=== PATIENT | female | born 1950 | race Caucasian/White ===

== ENCOUNTER 2017-05-01 16:15 | Inpatient (IN) | payer OTHER, MEDICARE ==
[~2017-05-01] VITALS: Ht 175.3 cm; Wt 92.4 kg
[~2017-05-01 16:15] MED LIST: CETI10 PO; LEVO137T2 PO; MULT-65 PO; SERT-132 PO; SIMV40TA PO; ZOFR4TAB PO
[2017-05-01 16:18] VITALS: BP 161/85; PULSE 60; RESP 16; TEMP 97.6; O2SAT 98
[2017-05-01 16:30] VITALS: BP 147/70; PULSE 63; RESP 16; O2SAT 99
--- NOTE | 2017-05-01 16:35 | PD ---
HPI Chief Complaint: Respiratory Distress Time Seen by Provider: 16:28 Travel History International Travel<30 days: No Contact w/Intl Traveler<30days: No Traveled to known affect area: No History of Present Illness HPI 67-year-old female presents to the emergency department with her with 3 day history of increasing shortness of breath with exertion. Patient denies fever, chills, productive cough, wheezing, or chest pain. Patient has significant history of recent glioblastoma surgery at [facility]. This occurred on April 10, 2017. Patient is currently awaiting chemo and radiation treatments. These have not started yet. Patient has local oncologist, and was sent here to rule out a PE. Patient also has a history of hypothyroidism not checked since January. Patient denies significant cardiac history. Patient denies edema in the lower extremities. Patient currently has no pain, but does get winded with any type of exertion. She states this is worsened in the last 3 days. Patient states history of anemia in the distant past. She has no abdominal complaints. She is allergic to amoxicillin. [facility], [facility] Past Medical History : 4 Para: 4 Social History Alcohol Use: No Tobacco Use: No Allergies-Medications (Allergen,Severity, Reaction): Coded Allergies: Penicillins (Verified Allergy, Severe, hives, 05/01/17) amoxicillin (Verified Allergy, Intermediate, hives, 05/01/17) Reported Meds & Prescriptions Reported Meds & Active Scripts Active Sertraline (Sertraline HCl) 50 Mg Tab 50 Mg PO DAILY Levothyroxine (Levothyroxine Sodium) 137 Mcg Tab 137 Mcg PO DAILY Simvastatin 40 Mg Tab 40 Mg PO HS Reported Dexamethasone 2 Mg Tab 2 Mg PO DAILY Keppra (Levetiracetam) 1,000 Mg Tab 1,000 Mg PO BID Multi-Vitamin Daily (Multiple Vitamin) 1 Tab Tab 1 Tab PO DAILY Review of Systems Except as stated in HPI: all other systems reviewed are Neg General / Constitutional: No: Fever Eyes: No: Visual changes HENT: No: Headaches Cardiovascular: Positive: Dyspnea on exertion, No: Chest Pain or Discomfort, Palpitations, Irregular Rhythm, Tachycardia, Diaphoresis Respiratory: Positive: Shortness of Breath, No: Cough, Wheezing, Sneezing Gastrointestinal: No: Nausea, Vomiting, Diarrhea, Abdominal Pain Genitourinary: No: Dysuria Musculoskeletal: No: Pain Skin: No Rash Neurologic: No: Weakness Psychiatric: No: Depression Endocrine: No: Polydipsia Hematologic/Lymphatic: No: Easy Bruising Physical Exam Narrative GENERAL: Patient appears comfortable and in no acute distress SKIN: Warm and dry. Normal color. Normal turgor HEAD: Atraumatic. Normocephalic. EYES: Pupils equal and round. No scleral icterus. No injection or drainage. No decreased pallor noted. ENT: No nasal bleeding or discharge. Mucous membranes pink and moist. Pharynx is clear. Airways patent NECK: Trachea midline. Supple and nontender CARDIOVASCULAR: Regular rate and rhythm. No murmurs or gallops appreciated. RESPIRATORY: No accessory muscle use. Clear to auscultation. Breath sounds equal bilaterally. GASTROINTESTINAL: Abdomen soft, non-tender, nondistended. Hepatic and splenic margins not palpable. MUSCULOSKELETAL: Extremities without clubbing, cyanosis, or edema. No obvious deformities. NEUROLOGICAL: Awake and alert. No obvious cranial nerve deficits. Motor grossly within normal limits. Five out of 5 muscle strength in the arms and legs. Normal speech. PSYCHIATRIC: Appropriate mood and affect; insight and judgment normal. Data Data Last Documented VS Vital Signs Date Time Temp Pulse Resp B/P (MAP) Pulse Ox O2 Delivery O2 Flow Rate FiO2 05/01/17 19:06 65 15 99 Room Air 05/01/17 19:05 162/78 (106) 05/01/17 16:30 2.00 05/01/17 16:18 97.6 Orders Orders Complete Blood Count With Diff (05/01/17 16:36) Comprehensive Metabolic Panel (05/01/17 16:36) Act Partial Throm Time (Ptt) (05/01/17 16:36) Prothrombin Time / Inr (Pt) (05/01/17 16:36) Magnesium (Mg) (05/01/17 16:36) Ckmb (Isoenzyme) Profile (05/01/17 16:36) Troponin I (05/01/17 16:36) Urinalysis - C+S If Indicated (05/01/17 16:36) Iv Access Insert/Monitor (05/01/17 16:36) Electrocardiogram (05/01/17 16:36) Ecg Monitoring (05/01/17 16:36) Oximetry (05/01/17 16:36) Oxygen Administration (05/01/17 16:36) Chest, Single Ap (05/01/17 16:36) Ct Pulmonary Angiogram (05/01/17 16:36) Sodium Chloride 0.9% Flush (Ns Flush) (05/01/17 16:45) Sodium Chlor 0.9% 1000 Ml Inj (Ns 1000 M (05/01/17 16:45) Thyroid Stimulating Hormone (05/01/17 16:50) Iohexol 350 Inj (Omnipaque 350 Inj) (05/01/17 18:34) Us Leg Venous Doppler Bilat (05/01/17 19:53) Heparin Inj (Heparin Inj) (05/01/17 20:00) Heparin-D5w 25,000 U/250 Ml (Heparin-D5w (05/01/17 20:00) Act Partial Throm Time (Ptt) (05/01/17 19:56) Prothrombin Time / Inr (Pt) (05/01/17 19:56) Cbc No Diff, Includes Plts (05/01/17 19:56) Cbc No Diff, Includes Plts (05/04/17 06:00) Act Partial Throm Time (Ptt) (05/02/17 02:56) Occult Blood (Hemoccult) Stool (05/01/17 19:56) Admit Order (Ed Use Only) (05/01/17 20:22) Labs Laboratory Tests Test 05/01/17 16:50 05/01/17 18:20 White Blood Count 5.7 TH/MM3 Red Blood Count 4.22 MIL/MM3 Hemoglobin 13.0 GM/DL Hematocrit 37.8 % Mean Corpuscular Volume 89.6 FL Mean Corpuscular Hemoglobin 30.8 PG Mean Corpuscular Hemoglobin Concent 34.4 % Red Cell Distribution Width 13.7 % Platelet Count 179 TH/MM3 Mean Platelet Volume 6.8 FL Neutrophils (%) (Auto) 74.8 % Lymphocytes (%) (Auto) 16.5 % Monocytes (%) (Auto) 7.6 % Eosinophils (%) (Auto) 0.6 % Basophils (%) (Auto) 0.5 % Neutrophils # (Auto) 4.2 TH/MM3 Lymphocytes # (Auto) 0.9 TH/MM3 Monocytes # (Auto) 0.4 TH/MM3 Eosinophils # (Auto) 0.0 TH/MM3 Basophils # (Auto) 0.0 TH/MM3 CBC Comment DIFF FINAL Differential Comment Prothrombin Time 10.0 SEC Prothromb Time International Ratio 1.0 RATIO Activated Partial Thromboplast Time 21.7 SEC Blood Urea Nitrogen 12 MG/DL Creatinine 0.60 MG/DL Random Glucose 107 MG/DL Total Protein 6.9 GM/DL Albumin 3.3 GM/DL Calcium Level 8.7 MG/DL Magnesium Level 1.9 MG/DL Alkaline Phosphatase 72 U/L Aspartate Amino Transf (AST/SGOT) 11 U/L Alanine Aminotransferase (ALT/SGPT) 27 U/L Total Bilirubin 0.4 MG/DL Sodium Level 139 MEQ/L Potassium Level 4.1 MEQ/L Chloride Level 105 MEQ/L Carbon Dioxide Level 26.8 MEQ/L Anion Gap 7 MEQ/L Estimat Glomerular Filtration Rate 100 ML/MIN Total Creatine Kinase 28 U/L Troponin I LESS THAN 0.02 NG/ML Thyroid Stimulating Hormone 3rd Gen 2.100 uIU/ML Urine Color LIGHT-YELLOW Urine Turbidity CLEAR Urine pH 6.0 Urine Specific [place] 1.011 Urine Protein NEG mg/dL Urine Glucose (UA) NEG mg/dL Urine Ketones NEG mg/dL Urine Occult Blood NEG Urine Nitrite NEG Urine Bilirubin NEG Urine Urobilinogen LESS THAN 2.0 MG/DL Urine Leukocyte Esterase NEG Urine WBC LESS THAN 1 /hpf Urine Squamous Epithelial Cells <1 /hpf Microscopic Urinalysis Comment CULT NOT INDICATED MDM Medical Decision Making Medical Screen Exam Complete: Yes Emergency Medical Condition: Yes Medical Record Reviewed: Yes Differential Diagnosis Exertional dyspnea. Anemia. PE. Hypothyroidism. Cardiac syndrome. CHF. Metastatic disease. Narrative Course Patient is medically stable at time of exam. Labs ordered including CBC, CMP, coagulation studies, TSH, and urinalysis. EKG is ordered. Chest x-ray is ordered. CTA of the chest is ordered. IV access is obtained and the patient is given 1000 mL normal saline bolus. Chest x-ray shows no acute process per radiologist. EKG shows sinus bradycardia without significant findings. CBC is unremarkable. Coagulation studies shows PT of 10, INR is 1.0. Chemistries are unremarkable. Random glucose is 107, AST is 11, albumin is 3.3. TSH is 2.1 CTA shows bilateral pulmonary emboli, and a single 6 mm pulmonary nodule in the right upper lung. Six-month follow-up is recommended for the nodule. Call was placed to Dr. Lindsay, the oncologist director [employer] regarding this patient. Dr. Lindsay recommends admitting the patient for heparinization due to her recent brain surgery on April 10, due to the risk of bleed, so she can be monitored closely. DVT studies of both lower extremities are ordered. Heparin order is placed. Calls placed to the hospitalist for admission. Diagnosis Primary Impression: Pulmonary embolism, bilateral Additional Impression: Glioblastoma Admitting Information Admitting Physician Requests: Admit Condition: Stable Dwight Landa May 01, 2017 16:35
[2017-05-01] MEDS ORDERED: SODIUM CHLORIDE 0.9% FLUSH 10 ML FLUSH IVF PRN (16:45)
[2017-05-01] MEDS ORDERED: SODIUM CHLOR 0.9% 1000 ML INJ 1,000 ML IV ONE (16:45)
[2017-05-01] MEDS ORDERED: DEXA2TAB PO (17:06)
[2017-05-01] MEDS ORDERED: KEPP10002 PO (17:06)
--- NOTE | 2017-05-01 17:07 | RADRPT ---
EXAM DATE/TIME: 05/01/2017 16:48 [facility] COMPARISON: No previous studies available for comparison. INDICATIONS : Shortnest of breath. MEDICAL HISTORY : None. SURGICAL HISTORY : None. ENCOUNTER: Initial ACUITY: 4 - 6 days PAIN SCORE: 0/10 LOCATION: Bilateral chest FINDINGS: A single view of the chest demonstrates the lungs to be symmetrically aerated without evidence of mas s, infiltrate or effusion. The cardiomediastinal contours are unremarkable. Osseous structures are intact. CONCLUSION: No acute disease. Art Buchanan MD FACR on May 01, 2017 at 17:04 Board Certified Radiologist. This report was verified electronically.
[2017-05-01 18:09] LABS: AUTOMATED NEUTROPHIL # 4.2 TH/MM3 (1.8-7.7); BASOPHIL % 0.5 % (0.0-2.0); EOSINOPHIL % 0.6 % (0.0-4.0); HEMATOCRIT 37.8 % (35.0-46.0); LYMPH % 16.5 % (9.0-44.0); LYMPHOCYTE # 0.9 TH/MM3 (1.0-4.8); MEAN CELL VOLUME 89.6 FL (80.0-100.0); MEAN CORPUSCULAR HEMOGLOBIN 30.8 PG (27.0-34.0); MEAN CORPUSCULAR HGB CONC 34.4 % (32.0-36.0); MEAN PLATELET VOLUME 6.8 FL (7.0-11.0); MONO % 7.6 % (0.0-8.0); MONOCYTE # 0.4 TH/MM3 (0-0.9); NEUT % 74.8 % (16.0-70.0); PLATELET COUNT 179 TH/MM3 (150-450); RED BLOOD COUNT 4.22 MIL/MM3 (4.00-5.30); RED CELL DISTRIBUTION WIDTH 13.7 % (11.6-17.2); WHITE BLOOD COUNT 5.7 TH/MM3 (4.0-11.0)
[2017-05-01 18:13] LABS: ALBUMIN 3.3 GM/DL (3.4-5.0); ALT (GPT) 27 U/L (10-53); AST (GOT) 11 U/L (15-37); BICARBONATE 26.8 MEQ/L (21.0-32.0); BLOOD UREA NITROGEN 12 MG/DL (7-18); CALCIUM 8.7 MG/DL (8.5-10.1); CHLORIDE 105 MEQ/L (98-107); GLOMERULAR FILTRATION RATE 100 ML/MIN (>89); GLUCOSE,RANDOM 107 MG/DL (74-106); MAGNESIUM 1.9 MG/DL (1.5-2.5); SODIUM (NA) 139 MEQ/L (136-145)
[2017-05-01 18:23] LABS: ALKALINE PHOSPHATASE 72 U/L (45-117); TOTAL BILIRUBIN ADULT 0.4 MG/DL (0.2-1.0); TOTAL PROTEIN 6.9 GM/DL (6.4-8.2); TROPONIN I LESS THAN 0.02 NG/ML (0.02-0.05)
[2017-05-01] MEDS ORDERED: IOHEXOL 350 MG/ML 10 ML VIAL (for RAD DIAG) IVCONTRAST ONE (18:34)
[2017-05-01 19:05] VITALS: BP 162/78; PULSE 65; RESP 16; O2SAT 99
--- NOTE | 2017-05-01 19:11 | RADRPT ---
EXAM DATE/TIME: 05/01/2017 18:31 [facility] COMPARISON: No previous studies available for comparison. INDICATIONS : Shortness of breath; 3 weeks post op. IV CONTRAST: 75 cc Omnipaque 350 (iohexol) IV RADIATION DOSE: 19.09 CTDIvol (mGy) MEDICAL HISTORY : Carcinoma, not otherwise specified. SURGICAL HISTORY : brain surgery ENCOUNTER: Initial ACUITY: 1 day PAIN SCALE: 0/10 LOCATION: chest TECHNIQUE: Volumetric scanning of the chest was performed using a pulmonary embolism protocol MIP images were re constructed. Using automated exposure control and adjustment of the mA and/or kV according to patien t size, radiation dose was kept as low as reasonably achievable to obtain optimal diagnostic quality images. DICOM format image data is available electronically for review and comparison. Follow-up recommendations for detected pulmonary nodules are based at a minimum on nodule size and pa tient risk factors according to Fleischner Society Guidelines. FINDINGS: PULMONARY ARTERIES: Multiple filling defects are seen in multiple branches of the pulmonary arteries bilaterally, especia lly involving the lower lung lake. This is characteristic for bilateral pulmonary emboli. LUNGS: There is a single 6 mm pulmonary nodule in the right upper lobe. Otherwise, the lungs are clear and w ell-aerated. No acute pulmonary infiltrates. PLEURAE: There is no pleural thickening or pleural effusion. MEDIASTINUM: There is good visualization of the great vessels of the middle mediastinum. No evidence of mediastin al or hilar adenopathy/mass. MUSCULOSKELETAL: Within normal limits for patient age. MISCELLANEOUS: The visualized upper abdominal organs demonstrate no acute abnormality. CONCLUSION: 1. Bilateral pulmonary emboli. 2. Single 6 mm pulmonary nodule right upper lung. Recommend a [address] thorax. Clifton Balderrama MD on May 01, 2017 at 19:05 Board Certified Radiologist. This report was verified electronically.
[2017-05-01 19:43] LABS: BILIRUBIN, URINE NEG (NEG); BLOOD, URINE NEG (NEG); GLUCOSE,URINE NEG (NEG); KETONE, URINE NEG (NEG); NITRITE,URINE NEG (NEG); SQUAMOUS EPITHELIAL CELL URINE <1 /hpf (0-5); URINE COLOR LIGHT-YELLOW (YELLW/STRAW); URINE LEUKOCYTE ESTERASE NEG (NEG)
[2017-05-01 20:00] VITALS: BP 114/55; PULSE 53; RESP 17; TEMP 97.2; O2SAT 95
[2017-05-01] MEDS ORDERED: HEPARIN SODIUM - IV 10,000 UNITS/10 ML VIAL IV PUSH ONE ×2 (20:00→21:30)
[2017-05-01] MEDS ORDERED: HEPARIN-D5W 25,000 U/250 ML 250 ML IV PRN (20:00)
--- NOTE | 2017-05-01 20:33 | HHI.HP ---
[facility] Service Family Medicine Primary Care Physician Tami Campos MD Admission Diagnosis Bilateral PE/Recent Brain Surgery for Glioblastoma Diagnoses: Chief Complaint: shortness of breath International Travel<30 Days: No Contact w/Intl Traveler<30days: No Known Affected Area: No History of Present Illness 67 y/o female with history of glioblastoma, hypothyroid, HLD presents with shortness of breath. Pt just had brain surgery 3 weeks at [facility] (04/10). Then, she started having some SOB, contacted [facility] and her oncologist who recommended her to be evaluated for possible PE. [facility] Dr. Garcia and [facility]. SOB started about 4 days ago, gotten worse each day. Denies any other symptoms at the time. Has had some headaches in the morning. No chest pain, did have cough after surgery and was taking antibiotics for that and finished course. SOB noticed when she was active , not at rest. No pain in her legs. Was only in hospital overnight. [facility], drove back on 04/17. No long drives >1h or flights since then. Diagnosed with glioblastoma around April 06 after traveling to [place] and being there a week. She had a seizure and was then evaluated. She returned home and had surgery. She is going to have radiation and chemotherapy for 6 weeks, then reevaluation at [facility] then probably another year of chemotherapy. (Justyn Connelly MD) Review of Systems Constitutional: DENIES: Fever, Weight gain, Chills, Dizziness Eyes: DENIES: Eye pain, Vision loss Ears, nose, mouth, throat: DENIES: Nasal discharge, Throat pain Respiratory: COMPLAINS OF: Shortness of breath, DENIES: Cough, Sputum production Cardiovascular: DENIES: Chest pain, Palpitations, Syncope, Lower Extremity Edema Gastrointestinal: COMPLAINS OF: Constipation, DENIES: Diarrhea, Nausea, Vomiting Genitourinary: DENIES: Dysuria, Nocturia Musculoskeletal: DENIES: Stiffness, Back pain, Neck pain Integumentary: DENIES: Rash Neurologic: COMPLAINS OF: Headache, Speech Problems, DENIES: Localized weakness , Seizures Psychiatric: DENIES: Confusion, Mood changes (Justyn Connelly MD) Past Family Social History Past Medical History Glioblastoma Hypothyroidism Hyperlipidemia Past Surgical History Brain surgery - 04/10/17 Tonsillectomy in 9 Appendectomy in 1990 (retrocecal) Basal cell carcinoma lesion (adan) in 2012 Reported Medications Reported Meds & Active Scripts Active Sertraline (Sertraline HCl) 50 Mg Tab 50 Mg PO DAILY Levothyroxine (Levothyroxine Sodium) 137 Mcg Tab 137 Mcg PO DAILY Simvastatin 40 Mg Tab 40 Mg PO HS Reported Dexamethasone 2 Mg Tab 2 Mg PO PRN daily Keppra (Levetiracetam) 1,000 Mg Tab 1,000 Mg PO BID Multi-Vitamin Daily (Multiple Vitamin) 1 Tab Tab 1 Tab PO DAILY (Justyn Connelly MD) Allergies: Coded Allergies: Penicillins (Verified Allergy, Severe, hives, 05/01/17) amoxicillin (Verified Allergy, Intermediate, hives, 05/01/17) Active Ordered Medications Active Medications Heparin Sodium (Porcine) (Heparin Inj) 7,000 units ONCE ONCE IV PUSH; Start 05/01/17 at 20:00; Stop 05/01/17 at 20:01; Status DC Heparin Sodium/ Dextrose 250 ml @ 0 mls/hr TITRATE PRN IV; Start 05/01/17 at 20: 00; Status UNV Iohexol (Omnipaque 350 Inj) 75 ml STK-MED ONCE IVCONTRAST Last administered on at 18:34; Admin Dose 75 ML; Start 05/01/17 at 18:34; Stop 05/01/17 at 18:35; Status DC Sodium Chloride 1,000 ml @ 999 mls/hr BOLUS ONCE IV Last administered on at 17:03; Admin Dose 999 MLS/HR; Start 05/01/17 at 16:45; Stop 05/01/17 at 17:45 ; Status DC Sodium Chloride (NS Flush) 2 ml UNSCH PRN IVF; Start 05/01/17 at 16:45 Family History Father: , stroke/heart attack/dementia Mother: , COPD, breast cancer Sibling(s): 2 sisters, both alive, both have hypothyroidism, one has a faulty heart valve Social History Marital status: Occupation: Teacher - retired in 2017 Smoking: Denies Alcohol: Occasional glass of wine Illicit or illegal prescription medication use: Denies (Justyn Connelly MD) Physical Exam Vital Signs Vital Signs Date Time Temp Pulse Resp B/P (MAP) Pulse Ox O2 Delivery O2 Flow Rate FiO2 05/01/17 19:06 65 15 99 Room Air 05/01/17 19:05 65 16 162/78 (106) 99 Room Air 05/01/17 16:30 63 16 147/70 (95) 99 Nasal Cannula 2.00 05/01/17 16:30 99 Nasal Cannula 2.00 05/01/17 16:30 99 Nasal Cannula 2.00 05/01/17 16:30 97 Room Air 05/01/17 16:18 97.6 60 16 161/85 (110) 98 Physical Exam GENERAL: This is a well-nourished, well-developed patient, in no apparent distress. SKIN: No rashes, ecchymoses or lesions. Cool and dry. HEAD: Normocephalic. Post-op scar on left side of head. No drainage. EYES: Pupils equal round and reactive. Extraocular motions intact. No scleral icterus. No injection or drainage. ENT: Throat without erythema, tonsillar hypertrophy or exudate. Uvula midline. Airway patent. NECK: Trachea midline. No JVD or lymphadenopathy. Supple, nontender. CARDIOVASCULAR: Regular rate and rhythm without murmurs, gallops, or rubs. RESPIRATORY: Clear to auscultation. Breath sounds equal bilaterally. No wheezes , rales, or rhonchi. GASTROINTESTINAL: Abdomen soft, non-tender, nondistended. No hepato-splenomegaly , or palpable masses. No guarding. MUSCULOSKELETAL: Extremities without clubbing, cyanosis, or edema. No joint tenderness, effusion, or edema noted. No calf tenderness. NEUROLOGICAL: Awake and alert. Cranial nerves II through XII intact. Motor and sensory grossly within normal limits. Five out of 5 muscle strength in all muscle groups. Dysarthria at times. Laboratory Laboratory Tests Test 05/01/17 16:50 05/01/17 18:20 White Blood Count 5.7 Red Blood Count 4.22 Hemoglobin 13.0 Hematocrit 37.8 Mean Corpuscular Volume 89.6 Mean Corpuscular Hemoglobin 30.8 Mean Corpuscular Hemoglobin Concent 34.4 Red Cell Distribution Width 13.7 Platelet Count 179 Mean Platelet Volume 6.8 Neutrophils (%) (Auto) 74.8 Lymphocytes (%) (Auto) 16.5 Monocytes (%) (Auto) 7.6 Eosinophils (%) (Auto) 0.6 Basophils (%) (Auto) 0.5 Neutrophils # (Auto) 4.2 Lymphocytes # (Auto) 0.9 Monocytes # (Auto) 0.4 Eosinophils # (Auto) 0.0 Basophils # (Auto) 0.0 CBC Comment DIFF FINAL Differential Comment Prothrombin Time 10.0 Prothromb Time International Ratio 1.0 Activated Partial Thromboplast Time 21.7 Blood Urea Nitrogen 12 Creatinine 0.60 Random Glucose 107 Total Protein 6.9 Albumin 3.3 Calcium Level 8.7 Magnesium Level 1.9 Alkaline Phosphatase 72 Aspartate Amino Transf (AST/SGOT) 11 Alanine Aminotransferase (ALT/SGPT) 27 Total Bilirubin 0.4 Sodium Level 139 Potassium Level 4.1 Chloride Level 105 Carbon Dioxide Level 26.8 Anion Gap 7 Estimat Glomerular Filtration Rate 100 Total Creatine Kinase 28 Troponin I LESS THAN 0.02 Thyroid Stimulating Hormone 3rd Gen 2.100 Urine Color LIGHT-YELLOW Urine Turbidity CLEAR Urine pH 6.0 Urine Specific Traver 1.011 Urine Protein NEG Urine Glucose (UA) NEG Urine Ketones NEG Urine Occult Blood NEG Urine Nitrite NEG Urine Bilirubin NEG Urine Urobilinogen LESS THAN 2.0 Urine Leukocyte Esterase NEG Urine WBC LESS THAN 1 Urine Squamous Epithelial Cells <1 Microscopic Urinalysis Comment CULT NOT INDICATED (Justyn Connelly MD) Result Diagram: 05/01/17164905/01/17 165 Imaging Last Impressions Lower Extremity Ultrasound 05/01/171952 Signed Impressions: Service Date/Time: Monday, May 01, 2017 20:09 - CONCLUSION: 1. Focal occlusive and nonocclusive DVT in the right posterior tibial vein below the knee. No evidence of DVT from the knee up into the pelvis on the right side. 2. No DVT of the left lower extremity. Clifton Balderrama MD Chest X-Ray 05/01/171635 Signed Impressions: Service Date/Time: Monday, May 01, 2017 16:48 - CONCLUSION: No acute disease. Art Buchanan MD FACR CT Angiography 05/01/171635 Signed Impressions: Service Date/Time: Monday, May 01, 2017 18:31 - CONCLUSION: 1. Bilateral pulmonary emboli. 2. Single 6 mm pulmonary nodule right upper lung. Recommend a [address] thorax. Clifton Balderrama MD (Justyn Connelly MD) Caprini VTE Risk Assessment Caprini VTE Risk Assessment: Mod/High Risk (score >= 2) Caprini Risk Assessment Model Point Value = 1 Point Value = 2 Point Value = 3 Point Value = 5 Age 41-60 Minor surgery BMI > 25 kg/m2 Swollen legs Varicose veins or History of unexplained or recurrent spontaneous Oral contraceptives or hormone replacement Sepsis (< 1 month) Serious lung disease, including pneumonia (< 1 month) Abnormal pulmonary function Acute myocardial infarction Congestive heart failure (< 1 month) History of inflammatory bowel disease Medical patient at bed rest Age 61-74 Arthroscopic surgery Major open surgery (> 45 min) Laparoscopic surgery (> 45 min) Malignancy Confined to bed (> 72 hours) Immobilizing plaster cast Central venous access Age >= 75 History of VTE Family history of VTE Factor V Leiden Prothrombin [id number] Lupus anticoagulant Anticardiolipin antibodies Elevated serum homocysteine Heparin-induced thrombocytopenia Other congenital or acquired thrombophilia Stroke (< 1 month) Elective arthroplasty Hip, pelvis, or leg fracture Acute spinal cord injury (< 1 month) Prophylaxis Regimen Total Risk Factor Score Risk Level Prophylaxis Regimen 0-1 Low Early ambulation 2 Moderate Order ONE of the following: *Sequential Compression Device (SCD) *Heparin 5000 units SQ BID 3-4 Higher Order ONE of the following medications: *Heparin 5000 units SQ TID *Enoxaparin/Lovenox 40 mg SQ daily (WT < 150 kg, CrCl > 30 mL/min) *Enoxaparin/Lovenox 30 mg SQ daily (WT < 150 kg, CrCl > 10-29 mL/min) *Enoxaparin/Lovenox 30 mg SQ BID (WT < 150 kg, CrCl > 30 mL/min) AND/OR *Sequential Compression Device (SCD) 5 or more Highest Order ONE of the following medications: *Heparin 5000 units SQ TID (Preferred with Epidurals) *Enoxaparin/Lovenox 40 mg SQ daily (WT < 150 kg, CrCl > 30 mL/min) *Enoxaparin/Lovenox 30 mg SQ daily (WT < 150 kg, CrCl > 10-29 mL/min) *Enoxaparin/Lovenox 30 mg SQ BID (WT < 150 kg, CrCl > 30 mL/min) AND *Sequential Compression Device (SCD) (Justyn Connelly MD) Assessment and Plan Assessment and Plan 67 y/o female with history of glioblastoma and recent brain surgery presents with shortness of breath, found to have bilateral pulmonary embolisms. Admit for workup and treatment. Oncology consulted by ED and recommended starting Heparin drip. Code Status Full Discussed Condition With Syeda (Justyn Connelly MD) Attending Attestation I examined the patient at 1130 today. Her and sister were at the beside. The patient is resting comfortably and denies shortness of breath. For details of HPI, ROS, PMH, SH and FH please see Dr. Connelly's documentation. Lungs are clear. I have discussed the case with Dr. Villar. I agree with the assessment and plan as documented. (Prevatte,Pedrito Shine Jr., MD) Problem List: (1) Pulmonary embolism, bilateral ICD Codes: I26.99 - Other pulmonary embolism without acute cor pulmonale Status: Acute Plan: SOB started several days ago. Risk factors include recent surgery and cancer. CXR: no acute disease CTA: Bilateral pulmonary emboli. Single 6mm pulmonary nodule right upper lung, recommend 6 month f/u Lower extremity US: DVT in right posterior tibia vein. In ED, call was place to Dr. Lindsay, oncologist section crews activities clerk, who recommended admitting pt for Heparin -Continue Heparin -Oncology consulted-appreciate recs -Plan transition to oral agent -Monitor vitals and for signs of bleeding. (2) Glioblastoma ICD Codes: C71.9 - Malignant neoplasm of brain, unspecified Status: Acute Plan: Glioblastoma just recently diagnosed and recent brain surgery as well -Continue Keppra for seizures -Continue Decadron -Oncology consulted -Neuro checks -Speech therapy consulted for evaluation and treatment if prolonged stay (3) Lung nodule ICD Codes: R91.1 - Solitary pulmonary nodule Plan: 6mm pulmonary nodule right upper lung noted on CTA. -Recommend 6 month follow up noncontrast CT -F/u outpatient (4) Hypothyroid ICD Codes: E03.9 - Hypothyroidism, unspecified Plan: TSH 2.1 Continue Synthroid (5) HLD (hyperlipidemia) ICD Codes: E78.5 - Hyperlipidemia, unspecified Plan: Continue Pravastatin (6) FEN Status: Acute Plan: Fluids: Tolerating PO Electrolytes: wnl, continue to monitor Nutrition: Regular diet DVT ppx: Heparin gtt (Justyn Connelly MD) Physician Certification 2 Midnight Certification Type: Admission for Inpatient Services Order for Inpatient Services The services are ordered in accordance with Medicare regulations or non- Medicare payer requirements, as applicable. In the case of services not specified as inpatient-only, they are appropriately provided as inpatient services in accordance with the 2-midnight benchmark. Estimated LOS (days): 3 days is the estimated time the patient will need to remain in the hospital, assuming treatment plan goals are met and no additional complications. Post-Hospital Plan: Home (Justyn Connelly MD) Problem Qualifiers (1) Hypothyroid: Qualified Codes: E03.9 - Hypothyroidism, unspecified (2) HLD (hyperlipidemia): Qualified Codes: E78.00 - Pure hypercholesterolemia, unspecified Justyn Connelly MD May 01, 2017 20:33 Pedrito Guardado Jr., MD May 02, 2017 12:13
--- NOTE | 2017-05-01 21:06 | RADRPT ---
EXAM DATE/TIME: 05/01/2017 20:09 [facility] COMPARISON: No previous studies available for comparison. INDICATIONS : Shortness of Breath. Recent long distance travel. MEDICAL HISTORY : Hypercholesterolemia. Thyroid disease. SURGICAL HISTORY : Tonsillectomy.Appendectomy. Neuro surgery 3 weeks ago. ENCOUNTER: Initial ACUITY: 4 - 6 days PAIN SCORE: 0/10 LOCATION: Bilateral legs. TECHNIQUE: Venous ultrasound of the left and right leg was performed from the inguinal ligament to the proximal calf. Real-time, color Doppler and spectral tracing, compression and augmentation techniques were us ed. FINDINGS: RIGHT LEG: There is normal compressibility of the deep venous system from the inguinal region to the proximal ca lf. No echogenic clot is seen in the lumen of the common femoral, femoral, popliteal vein. However, there is occlusive and some nonocclusive DVT in the right posterior tibial vein in the calf.. LEFT LEG: There is normal compressibility of the deep venous system from the inguinal region to the proximal ca lf. No echogenic clot is seen in the lumen of the common femoral, femoral, popliteal, and posterior tibial veins. There is a normal response of the venous system to proximal and distal augmentation an d respiration. CONCLUSION: 1. Focal occlusive and nonocclusive DVT in the right posterior tibial vein below the knee. No evidenc e of DVT from the knee up into the pelvis on the right side. 2. No DVT of the left lower extremity. Clifton Balderrama MD on May 01, 2017 at 21:01 Board Certified Radiologist. This report was verified electronically.
[2017-05-01] MEDS ORDERED: SODIUM CHLORIDE 0.9% FLUSH 10 ML FLUSH IV FLUSH PRN (21:30)
[2017-05-01] MEDS ORDERED: LACTULOSE SYRUP 20 GM/30 ML CUP PO PRN (21:30)
[2017-05-01] MEDS ORDERED: MAGNESIUM HYDROXIDE SUSP 30 ML CUP PO PRN (21:30)
[2017-05-01] MEDS ORDERED: NALOXONE HCL 0.4 MG/ML AMP IV PUSH PRN (21:30)
[2017-05-01] MEDS ORDERED: ZOLPIDEM TARTRATE 5 MG TAB PO PRN (21:30)
[2017-05-01] MEDS ORDERED: ACETAMINOPHEN 325 MG TAB PO PRN (21:30)
[2017-05-01] MEDS ORDERED: BISACODYL 10 MG SUPP RECTAL PRN (21:30)
[2017-05-01] MEDS ORDERED: SENNOSIDES 8.6 MG TAB PO PRN (21:30)
[2017-05-01] MEDS ORDERED: ONDANSETRON HCL 4 MG/2 ML VIAL IVP PRN (21:30)
[2017-05-01] MEDS: PRAVASTATIN SOD 80 MG TAB PO SCH (22:15)
[2017-05-01] MEDS ORDERED: PILL SPLITTER OTHER PRN (22:15)
[2017-05-02] MEDS ORDERED: HEPARIN SODIUM - IV 10,000 UNITS/10 ML VIAL IV PUSH ONE (01:00)
[2017-05-02 01:07] VITALS: BP 126/62; PULSE 73; RESP 18; TEMP 97.3; O2SAT 96
[2017-05-02] MEDS: HEPARIN 25,000 UNITS-D5W 250 ML - PREMIX IV PRN ×2 (01:35→19:12)
[2017-05-02 04:44] VITALS: BP 133/69; PULSE 63; RESP 18; TEMP 98; O2SAT 95
[2017-05-02 05:12] LABS: AUTOMATED NEUTROPHIL # 3.2 TH/MM3 (1.8-7.7); BASOPHIL % 0.7 % (0.0-2.0); EOSINOPHIL # 0.1 TH/MM3 (0-0.4); EOSINOPHIL % 2.3 % (0.0-4.0); HEMATOCRIT 34.4 % (35.0-46.0); LYMPHOCYTE # 2.3 TH/MM3 (1.0-4.8); MEAN CELL VOLUME 88.5 FL (80.0-100.0); MEAN CORPUSCULAR HEMOGLOBIN 30.8 PG (27.0-34.0); MEAN CORPUSCULAR HGB CONC 34.8 % (32.0-36.0); MEAN PLATELET VOLUME 6.8 FL (7.0-11.0); MONO % 7.5 % (0.0-8.0); MONOCYTE # 0.5 TH/MM3 (0-0.9); NEUT % 51.5 % (16.0-70.0); PLATELET COUNT 164 TH/MM3 (150-450); RED BLOOD COUNT 3.88 MIL/MM3 (4.00-5.30); RED CELL DISTRIBUTION WIDTH 13.8 % (11.6-17.2); WHITE BLOOD COUNT 6.1 TH/MM3 (4.0-11.0)
[2017-05-02 05:22] LABS: INTERNATIONAL NORMALIZED RATIO 1.1 RATIO; PROTHROMBIN TIME - PATIENT 10.7 SEC (9.8-11.6)
[2017-05-02 05:33] LABS: ALBUMIN 2.8 GM/DL (3.4-5.0); ALT (GPT) 23 U/L (10-53); AST (GOT) 10 U/L (15-37); BICARBONATE 29.8 MEQ/L (21.0-32.0); BLOOD UREA NITROGEN 9 MG/DL (7-18); CALCIUM 8.3 MG/DL (8.5-10.1); CHLORIDE 107 MEQ/L (98-107); CREATININE 0.54 MG/DL (0.50-1.00); GLOMERULAR FILTRATION RATE 113 ML/MIN (>89); GLUCOSE,RANDOM 103 MG/DL (74-106); SODIUM (NA) 141 MEQ/L (136-145)
[2017-05-02 05:36] LABS: ALKALINE PHOSPHATASE 62 U/L (45-117); TOTAL BILIRUBIN ADULT 0.4 MG/DL (0.2-1.0); TOTAL PROTEIN 5.9 GM/DL (6.4-8.2)
[2017-05-02] MEDS: LEVOTHYROXINE SODIUM 25 MCG TAB PO SCH (05:39)
[2017-05-02] MEDS: LEVOTHYROXINE SODIUM 112 MCG TAB PO SCH (05:39)
--- NOTE | 2017-05-02 07:46 | HHI.FPPN ---
Subjective Remarks Mrs. Seymour, is a very pleasant 67-year-old, female, with past medical history of glioblastoma, status post tumor resection at [facility] on 2017, who presented to our emergency department with increasing shortness of breath. She was found to have right sided DVT in her lower extremity, as well as bilateral pulmonary emboli. She reported that she would become increasingly fatigued, and short of breath with ambulation. She was put on a heparin drip, and treated for her bilateral pulmonary emboli. Today, she is feeling well. She thought that she may have had a headache early in the morning, however this has subsided. She did not sleep well last night. She denies any bleeding. She denies any visual changes. She denies any increasing shortness of breath, however has not been out of bed. She denies any fevers or chills. (Ramana Villar MD, R3) Objective Vitals Vital Signs Date Time Temp Pulse Resp B/P (MAP) Pulse Ox O2 Delivery O2 Flow Rate FiO2 05/02/17 04:44 98.0 63 18 133/69 (90) 95 05/02/17 01:07 97.3 73 18 126/62 (83) 96 05/01/17 19:06 65 15 99 Room Air 05/01/17 19:05 65 16 162/78 (106) 99 Room Air 05/01/17 16:30 63 16 147/70 (95) 99 Nasal Cannula 2.00 05/01/17 16:30 99 Nasal Cannula 2.00 05/01/17 16:30 99 Nasal Cannula 2.00 05/01/17 16:30 97 Room Air 05/01/17 16:18 97.6 60 16 161/85 (110) 98 I/O 05/01/17 05/01/17 05/01/17 05/02/17 05/02/17 05/02/17 07:00 15:00 23:00 07:00 15:00 23:00 Intake Total 1000 ml Balance 1000 ml Intake IV Total 1000 ml (Ramana Villar MD, R3) Result Diagram: 05/02/176 05/02/176 Imaging Last 72 hours Impressions Lower Extremity Ultrasound 05/01/171952 Signed Impressions: Service Date/Time: Monday, May 01, 2017 20:09 - CONCLUSION: 1. Focal occlusive and nonocclusive DVT in the right posterior tibial vein below the knee. No evidence of DVT from the knee up into the pelvis on the right side. 2. No DVT of the left lower extremity. Clifton Balderrama MD Chest X-Ray 05/01/171635 Signed Impressions: Service Date/Time: Monday, May 01, 2017 16:48 - CONCLUSION: No acute disease. Art Buchanan MD FACR CT Angiography 05/01/171635 Signed Impressions: Service Date/Time: Monday, May 01, 2017 18:31 - CONCLUSION: 1. Bilateral pulmonary emboli. 2. Single 6 mm pulmonary nodule right upper lung. Recommend a [address] thorax. Clifton Balderrama MD Objective Remarks GENERAL: Well-nourished, well-developed patient. No acute distress. SKIN: Warm and dry. No rash. EYES: No scleral icterus. No injection or drainage. PERRLA. EOMI. HENT: Normocephalic. Atraumatic. MMM. NECK: No visible JVD or lymphadenopathy. CARDIOVASCULAR: Warm and well perfused. RESPIRATORY: Normal respiratory effort. GASTROINTESTINAL: Abdomen nondistended. MUSCULOSKELETAL: Strength grossly WNL. Right PICC line in the upper arm. BACK: Without obvious deformity. NEURO/PSYCH: Afocal. Awake, alert, and oriented x3. (Ramana Villar MD, R3) A/P Assessment and Plan 67 y/o female with history of glioblastoma and recent brain surgery presents with shortness of breath, found to have bilateral pulmonary embolisms. Admit for workup and treatment. Oncology consulted by ED and recommended starting Heparin drip. (Ramana Villar MD, R3) Attending Attestation I examined the patient at 1130 today. Her and sister were at the beside. I have reviewed Dr. Connelly's note and agree with his documentation of PMH , SH, FH, ROS and HPI. The patient is resting comfortably and denies shortness of breath. Lungs are clear. I have discussed the case with Dr. Villar. I agree with the assessment and plan as documented. (Prevatte,Pedrito Shine Jr., MD) Problem List: (1) Pulmonary embolism, bilateral ICD Codes: I26.99 - Other pulmonary embolism without acute cor pulmonale Status: Acute Plan: SOB started several days ago. Risk factors include recent surgery and cancer. CXR: no acute disease CTA: Bilateral pulmonary emboli. Single 6mm pulmonary nodule right upper lung, recommend 6 month f/u Lower extremity US: DVT in right posterior tibia vein. In ED, call was place to Dr. Lindsay, oncologist cardiopulmonary technician and eeg tech, who recommended admitting pt for Heparin -Continue Heparin -Oncology consulted-appreciate recs -Plan transition to oral agent -Monitor vitals and for signs of bleeding. (2) Glioblastoma ICD Codes: C71.9 - Malignant neoplasm of brain, unspecified Status: Acute Plan: Glioblastoma just recently diagnosed and recent brain surgery as well -Continue Keppra for seizures -Continue Decadron -Oncology consulted -Neuro checks -Speech therapy consulted for evaluation and treatment if prolonged stay (3) Lung nodule ICD Codes: R91.1 - Solitary pulmonary nodule Plan: 6mm pulmonary nodule right upper lung noted on CTA. -Recommend 6 month follow up noncontrast CT -F/u outpatient (4) Hypothyroid ICD Codes: E03.9 - Hypothyroidism, unspecified Plan: TSH 2.1 Continue Synthroid (5) HLD (hyperlipidemia) ICD Codes: E78.5 - Hyperlipidemia, unspecified Plan: Continue Pravastatin (6) FEN Status: Acute Plan: Fluids: Tolerating PO Electrolytes: wnl, continue to monitor Nutrition: Regular diet DVT ppx: Heparin gtt Discussed with Dr. Guardado. (Ramana Villar MD, R3) Problem Qualifiers (1) Hypothyroid: Qualified Codes: E03.9 - Hypothyroidism, unspecified (2) HLD (hyperlipidemia): Qualified Codes: E78.00 - Pure hypercholesterolemia, unspecified Ramana Villar MD, R3 May 02, 2017 07:46 Pedrito Guardado Jr., MD May 02, 2017 12:17
[2017-05-02 08:50] VITALS: O2SAT 98
[2017-05-02 08:51] VITALS: BP 129/65; PULSE 66; RESP 17; TEMP 98; O2SAT 96
[2017-05-02] MEDS: DEXAMETHASONE 4 MG TAB PO SCH (09:00)
[2017-05-02] MEDS: SODIUM CHLORIDE 0.9% FLUSH 10 ML FLUSH IV FLUSH SCH ×2 (09:00→21:16)
[2017-05-02] MEDS: DOCUSATE SODIUM 50 MG/SENNA 8.6 MG TAB PO SCH ×2 (09:00→21:00)
[2017-05-02] MEDS: SERTRALINE HCL 50 MG TAB PO SCH (09:49)
[2017-05-02] MEDS: levETIRAcetam 500 MG TAB PO SCH ×2 (09:50→21:16)
--- NOTE | 2017-05-02 11:40 | MB ---
cc: MARCELA CASTAÑEDA M.D. DATE OF CONSULTATION: 05/02/2017. REASON FOR CONSULTATION: Oncology consulted to render opinion regarding patient with glioblastoma admitted with pulmonary embolism. ATTENDING PHYSICIAN: . HISTORY OF PRESENT ILLNESS: The patient is a very pleasant 67-year-old female diagnosed with glioblastoma last month and underwent a gross total resection at [facility] on April 10, 2017. She was doing well until about four days ago. She was noticing increased dyspnea on exertion and it was progressively getting worse over the last few days. She denies any chest pain. She has no palpitations. She denies any lower extremity edema or tenderness. She states that she has been active. She has had headache on and off since the surgery. She had two episodes over the last two weeks. She denies any visual changes. She denies any focal numbness or weakness. She has been tapered off steroids since her surgery. She has not had any seizure episodes either. She was started on heparin in the emergency room and so far she has no complaint of bleeding or change in neurologic symptoms. PAST MEDICAL HISTORY: 1. Glioblastoma diagnosed a month ago. 2. Hypothyroidism. 3. Hyperlipidemia. 4. Seizure disorder. 5. Benign breast lesion. PAST SURGICAL HISTORY: 1. Craniotomy with gross total resection of glioblastoma on April 10, 2017. 2. Tonsillectomy. 3. Appendectomy. 4. Excision of non-melanoma skin cancer. 5. Breast biopsy. 6. Colonoscopy. FAMILY HISTORY: Two sisters are alive. The mother had breast cancer. SOCIAL HISTORY: No tobacco use. Has occasional wine. ALLERGIES: 1. PENICILLIN. 2. AMOXICILLIN. CURRENT MEDICATIONS: 1. Alejandra-Colace. 2. Decadron 2 milligrams. 3. Keppra. 4. Zoloft. 5. Levothyroxine. 6. Pravastatin. REVIEW OF SYSTEMS: CONSTITUTIONAL: Negative. EYES: Negative. ENT: Negative. CARDIOVASCULAR: Denies any chest pressure or palpitations. RESPIRATORY: As above. GI: Denies any nausea or vomiting, diarrhea or abdominal pain. : Denies any dysuria or hematuria. MUSCULOSKELETAL: Negative. HEMATOLOGIC: As above. ENDOCRINE: Negative. DERMATOLOGIC: Negative. PSYCHIATRIC: Negative. NEUROLOGIC: As above. PHYSICAL EXAMINATION: VITAL SIGNS: Temperature 98, blood pressure 129/65, 02 saturation 96% room air. GENERAL: She is alert and oriented x3 in no acute distress. HEAD, EYES, EARS, NOSE, THROAT: Atraumatic. Surgical scar noted. Pupils equal, round, reactive to light. OROPHARYNX: Dry mucosa. No lesions. NECK: No thyromegaly. No palpable mass. LYMPHATIC: No palpable cervical, clavicular, axillary or inguinal lymph nodes. CARDIOVASCULAR: Regular S1-S2. No murmur. LUNGS: Clear to auscultation bilaterally. ABDOMEN: Abdomen soft and nontender. I could not palpate the liver or spleen. EXTREMITIES: No cyanosis or clubbing. No edema. No calf tenderness. BACK: No paravertebral tenderness. SKIN: No rash or petechiae. NEUROLOGIC EXAM: Nonfocal. LABORATORY DATA: CBC within normal limits. PTT 56.6. Creatinine 0.5. Liver transaminases within normal limits. ASSESSMENT: 1. Acute bilateral pulmonary embolism with right lower extremity deep venous thrombosis. The patient has hypercoagulable state due to underlying malignancy. She has been relatively active since the surgery three weeks ago. She has no personal or family history of thromboembolic event. She started experiencing increasing dyspnea on exertion about four days ago which has progressively getting worse. She denies any lower extremity edema or tenderness. On presentation, CT angiogram showed bilateral pulmonary embolism involving multiple branches especially in the lower lung lake. Ultrasound of the lower extremities showed focal occlusive and nonocclusive thrombosis in the right posterior tibial vein below the knee. I have discussed with the physician medicine assistant in the emergency room last night, given that the patient had craniotomy with gross total resection of glioblastoma on April 10, I think her risk of developing intracerebral hemorrhage is lower; however, I think it is safer to start her on heparin, which has a short half-life and we can reverse it if she develops any bleeding episodes. So far, she has tolerated the heparin quite well. I had an extensive discussion with the patient and her family regarding the difficult situation. I told them she has competing needs for anticoagulation but there is risk for bleeding. However, I think the benefits outweigh the risks at this point. I recommend to continue heparin for another day or two, if she is stable then we could switch her to oral anticoagulant. I think she could try Pradaxa which has an antidote in case she develops a bleed. Once the patient starts radiation, I think the risks of bleeding will be less. I also plan to have her get a CT of the head tomorrow morning just to monitor and make sure she does not have any bleeding. Extensive discussion with the patient and family. Their questions were answered. 2. Glioblastoma diagnosed in March of 2017. She was in [place] at that time when she developed a seizure. She was found to have a left frontoparietal lobe lesion. She came back to the [facility] and went to [place] to see Dr. Barrera. She underwent a gross total resection on April 10. The tumor reportedly was IDH1 negative. She had an MRI on April 11 which only showed postop changes but no clear evidence of residual tumor. She has seen Dr. Garcia and Dr. Trujillo. She is awaiting to start radiation with concurrent Temodar. She has mild expressive aphasia after the surgery. She has no other neurologic symptoms or further seizure episodes since then. 3. Hypothyroidism. 4. Hyperlipidemia. 5. History of benign breast lesion. At one point, she was on Tamoxifen for about three years. RECOMMENDATIONS: 1. Extensive discussion with the patient and family. 2. Continue heparin. 3. I plan to get a CT of the head without contrast tomorrow. 4. If the patient is stable on heparin for a day or so, could consider switching her to oral anticoagulation agent like Pradaxa. Thank you for asking me to see this patient. MD JOAN Hart/SHERRIE /10:57 AM /11:22 AM [facility] CENTERJayla
[2017-05-02 12:44] VITALS: BP 131/60; PULSE 66; RESP 18; TEMP 98; O2SAT 94
[2017-05-02 16:25] VITALS: BP 123/58; PULSE 76; RESP 17; TEMP 97.5; O2SAT 96
[2017-05-02] MEDS ORDERED: ENALAPRILAT 1.25 MG/ML VIAL IV PUSH PRN (17:45)
[2017-05-02] MEDS: PRAVASTATIN SOD 80 MG TAB PO SCH (21:16)
--- NOTE | 2017-05-02 23:54 | EKG ---
Date Performed: 05/01/2017 Time Performed: 17:21:56 PTAGE: 67 years EKG: SINUS BRADYCARDIA BORDERLINE ECG NO PREVIOUS TRACING DOCTOR: Gary Pacheco Interpretating Date/Time 05/02/2017 23:52:33
[2017-05-03] VITALS: BP 134/65; PULSE 59; RESP 16; TEMP 98.3; O2SAT 92
[2017-05-03 04:00] VITALS: BP 143/65; PULSE 66; RESP 17; TEMP 97.8; O2SAT 94
[2017-05-03] MEDS: LEVOTHYROXINE SODIUM 112 MCG TAB PO SCH (05:52)
[2017-05-03] MEDS: LEVOTHYROXINE SODIUM 25 MCG TAB PO SCH (05:52)
--- NOTE | 2017-05-03 06:54 | HHI.FPPN ---
Subjective Remarks Lola is doing well this morning. She had a headache early in the a.m., however with Tylenol this resolved. She denies any blurry vision, confusion, or numbness/tingling that is new. Her breathing is not labored, and she is comfortable. Objective Vitals Vital Signs Date Time Temp Pulse Resp B/P (MAP) Pulse Ox O2 Delivery O2 Flow Rate FiO2 05/03/17 04:00 97.8 66 17 143/65 (91) 94 05/03/17 00:00 98.3 59 16 134/65 (88) 92 05/02/17 16:25 97.5 76 17 123/58 (79) 96 05/02/17 12:44 98.0 66 18 131/60 (83) 94 05/02/17 08:51 98.0 66 17 129/65 (86) 96 05/02/17 08:50 98 I/O 05/02/17 05/02/17 05/02/17 05/03/17 05/03/17 05/03/17 07:00 15:00 23:00 07:00 15:00 23:00 Intake Total 720 ml Balance 720 ml Intake Oral 720 ml # Voids 4 Result Diagram: 05/02/176 05/02/176 Imaging Last 72 hours Impressions Lower Extremity Ultrasound 05/01/171952 Signed Impressions: Service Date/Time: Monday, May 01, 2017 20:09 - CONCLUSION: 1. Focal occlusive and nonocclusive DVT in the right posterior tibial vein below the knee. No evidence of DVT from the knee up into the pelvis on the right side. 2. No DVT of the left lower extremity. Clifton Badlerrama MD Chest X-Ray 05/01/171635 Signed Impressions: Service Date/Time: Monday, May 01, 2017 16:48 - CONCLUSION: No acute disease. Art Buchanan MD FACR CT Angiography 05/01/171635 Signed Impressions: Service Date/Time: Monday, May 01, 2017 18:31 - CONCLUSION: 1. Bilateral pulmonary emboli. 2. Single 6 mm pulmonary nodule right upper lung. Recommend a [address] thorax. Clifton Balderrama MD Objective Remarks GENERAL: Well-nourished, well-developed patient. No acute distress. SKIN: Warm and dry. No rash. EYES: No scleral icterus. No injection or drainage. PERRLA. EOMI. HENT: Normocephalic. Atraumatic. MMM. NECK: No visible JVD or lymphadenopathy. CARDIOVASCULAR: Warm and well perfused. RESPIRATORY: Normal respiratory effort. GASTROINTESTINAL: Abdomen nondistended. MUSCULOSKELETAL: Strength grossly WNL. Right PICC line in the upper arm. BACK: Without obvious deformity. NEURO/PSYCH: Afocal. Awake, alert, and oriented x3. A/P Assessment and Plan 67 y/o female with history of glioblastoma and recent brain surgery presents with shortness of breath, found to have bilateral pulmonary embolisms. Admit for workup and treatment. Oncology consulted by ED and recommended starting Heparin drip. Problem List: (1) Pulmonary embolism, bilateral ICD Codes: I26.99 - Other pulmonary embolism without acute cor pulmonale Status: Acute Plan: SOB started several days ago. Risk factors include recent surgery and cancer. CXR: no acute disease CTA: Bilateral pulmonary emboli. Single 6mm pulmonary nodule right upper lung, recommend 6 month f/u Lower extremity US: DVT in right posterior tibia vein. -Continue Heparin gtt. -Oncology consulted-appreciate recs. Dr. Lindsay recommended, starting Pradaxa after 1-2 days of being stable on the heparin. She chose this anti-coagulant due to its reversibility, and her previous history of tumor resection in the left frontal temporal lobe. -Plan transition to oral agent -Monitor vitals and for signs of bleeding. (2) Glioblastoma ICD Codes: C71.9 - Malignant neoplasm of brain, unspecified Status: Acute Plan: Glioblastoma just recently diagnosed and recent brain surgery as well -Continue Keppra for seizures -Continue Decadron -Oncology consulted -Neuro checks -Speech therapy consulted for evaluation and treatment if prolonged stay (3) Lung nodule ICD Codes: R91.1 - Solitary pulmonary nodule Plan: 6mm pulmonary nodule right upper lung noted on CTA. -Recommend 6 month follow up noncontrast CT -F/u outpatient (4) Hypothyroid ICD Codes: E03.9 - Hypothyroidism, unspecified Plan: TSH 2.1 Continue Synthroid (5) HLD (hyperlipidemia) ICD Codes: E78.5 - Hyperlipidemia, unspecified Plan: Continue Pravastatin (6) FEN Status: Acute Plan: Fluids: Tolerating PO Electrolytes: wnl, continue to monitor Nutrition: Regular diet DVT ppx: Heparin gtt --> Pradaxa. Continue to monitor for signs of bleeding. Disposition: Likely home today, or tomorrow 05/04/2017. We will follow-up CT of her head, to rule out any bleeding. Also, will start oral anticoagulation. Appreciate the assistance of hematology. Discussed with Dr. Guardado. Problem Qualifiers (1) Hypothyroid: Qualified Codes: E03.9 - Hypothyroidism, unspecified (2) HLD (hyperlipidemia): Qualified Codes: E78.00 - Pure hypercholesterolemia, unspecified Ramana Villar MD, R3 May 03, 2017 06:54
--- NOTE | 2017-05-03 08:39 | PD.ONC.PN ---
Subjective Subjective Remarks Afebrile Patient reports a mild headache overnight that felt similar to headaches that she's had since diagnosis of glioblastoma No bleeding Shortness of breath is improved Denies chest pain Objective Data Date Time Temp Pulse Resp B/P (MAP) Pulse Ox O2 Delivery O2 Flow Rate FiO2 05/03/17 04:00 97.8 66 17 143/65 (91) 94 05/03/17 00:00 98.3 59 16 134/65 (88) 92 05/02/17 16:25 97.5 76 17 123/58 (79) 96 05/02/17 12:44 98.0 66 18 131/60 (83) 94 05/02/17 08:51 98.0 66 17 129/65 (86) 96 05/02/17 08:50 98 05/03/17 05/03/17 05/03/17 07:00 15:00 23:00 Intake Total 720 ml Balance 720 ml Result Diagram: 05/02/17 0446 05/02/17445 Laboratory Results Laboratory Tests Test 05/02/17 14:13 Activated Partial Thromboplast Time 49.2 SEC Administered Medications Medications (Trade) Dose Ordered Sig/Wilson Route PRN Reason Start Time Stop Time Status Last Admin Dose Admin Sodium Chloride (NS Flush) 2 ml BID IV FLUSH 05/02/17 09:00 05/02/17 21:16 Acetaminophen (Tylenol) 650 mg Q4H PRN PO TEMP > 100.4, or pain 1-10 05/01/17 21:30 05/03/17 03:34 Levetriacetam (Keppra) 1,000 mg BID PO 05/02/17 09:00 05/02/17 21:16 Sertraline HCl (Zoloft) 50 mg DAILY PO 05/02/17 09:00 05/02/17 09:49 Levothyroxine Sodium (Synthroid) 112 mcg DAILY@0600 PO 05/02/17 06:00 05/03/17 05:52 Pravastatin Sodium (Pravachol) 80 mg HS PO 05/01/17 22:15 05/02/17 21:16 Heparin Sodium/ Dextrose 250 ml @ 16 mls/hr TITRATE PRN IV Coagulation Management 05/01/17 21:30 05/02/17 19:12 Levothyroxine Sodium (Synthroid) 25 mcg DAILY@0600 PO 05/02/17 06:00 05/03/17 05:52 Objective Remarks GENERAL: Older female resting in bed in no obvious distress. SKIN: Warm and dry. No oozing from lines HEAD: Normocephalic. EYES: No injection or drainage. NECK: Supple, trachea midline. CARDIOVASCULAR: Regular rate and rhythm without murmurs. RESPIRATORY: Breath sounds equal bilaterally. No accessory muscle use. GASTROINTESTINAL: Abdomen soft, non-tender, nondistended. EXTREMITIES: No cyanosis, or edema. MUSCULOSKELETAL: Adequate muscle tone. NEUROLOGICAL: Speech impediment. Moving all extremities. Alert and oriented 3 Assessment/Plan Problem List: (1) Glioblastoma ICD Codes: C71.9 - Malignant neoplasm of brain, unspecified Status: Acute Plan: -- She is awaiting to start radiation with concurrent Temodar -- Biopsy of the lesion was reportedly H1 negative Hx/Workup: The patient was in [place] in March when she developed seizures. She went to the hospital in [place] and was found to have a left frontoparietal lobe lesion and at that point return to the [facility] and had a gross total resection at [facility] on April 10, 2017. (2) Pulmonary embolism, bilateral ICD Codes: I26.99 - Other pulmonary embolism without acute cor pulmonale Status: Acute Plan: -- Ultrasound shows right lower extremity DVT -- Provoked due to hypercoagulable state due to underlying malignancy as well as recent travel -- CT angiogram shows bilateral pulmonary embolism involving multiple branches especially in the lower lung lake -- High-risk anticoagulation due to recent craniotomy -- Once radiation starts to the brain, her bleeding risk will be decreased Assessment Oncology consulted to render opinion regarding patient with glioblastoma admitted with pulmonary embolism. Plan 1. Get CT brain to evaluate for bleed 2. Transition to Pradaxa later today if CT brain OK 3. Once discharged, followup in clinic for treatment of glioblastoma (Temodar and XRT) 4. Monitor CBC Attending Statement The exam, history, and the medical decision-making described in the above note were completed with the assistance of the mid-level provider. I reviewed and agree with the findings presented. I attest that I had a [id number] encounter with the patient on the same day, and personally performed and documented my assessment and findings in the medical record. Tolerating heparin. No CP. No SOB. Family at the bedside. Discussed with her daughter who is a PA. CT head showed no bleeding. Will bridge her to Pradaxa this evening and can be d/c tomorrow if tolerating well. Celestina Handy May 03, 2017 08:39 Cornelius Lindsay MD May 03, 2017 12:23
[2017-05-03 08:44] VITALS: BP 137/66; PULSE 65; RESP 17; TEMP 97.9; O2SAT 95
[2017-05-03] MEDS: DEXAMETHASONE 4 MG TAB PO SCH (09:00)
[2017-05-03 09:15] LABS: AUTOMATED NEUTROPHIL # 2.6 TH/MM3 (1.8-7.7); EOSINOPHIL # 0.2 TH/MM3 (0-0.4); EOSINOPHIL % 4.5 % (0.0-4.0); HEMATOCRIT 36.6 % (35.0-46.0); HEMOGLOBIN 12.5 GM/DL (11.6-15.3); LYMPH % 30.4 % (9.0-44.0); LYMPHOCYTE # 1.4 TH/MM3 (1.0-4.8); MEAN CORPUSCULAR HEMOGLOBIN 30.8 PG (27.0-34.0); MEAN CORPUSCULAR HGB CONC 34.2 % (32.0-36.0); MEAN PLATELET VOLUME 6.8 FL (7.0-11.0); MONO % 7.3 % (0.0-8.0); MONOCYTE # 0.3 TH/MM3 (0-0.9); NEUT % 56.8 % (16.0-70.0); PLATELET COUNT 165 TH/MM3 (150-450); RED BLOOD COUNT 4.07 MIL/MM3 (4.00-5.30); RED CELL DISTRIBUTION WIDTH 13.4 % (11.6-17.2); WHITE BLOOD COUNT 4.6 TH/MM3 (4.0-11.0)
[2017-05-03] MEDS: levETIRAcetam 500 MG TAB PO SCH ×2 (09:19→21:13)
[2017-05-03] MEDS: SERTRALINE HCL 50 MG TAB PO SCH (09:19)
[2017-05-03 09:38] LABS: ALBUMIN 2.8 GM/DL (3.4-5.0); AST (GOT) 14 U/L (15-37); BICARBONATE 28.4 MEQ/L (21.0-32.0); BLOOD UREA NITROGEN 9 MG/DL (7-18); CALCIUM 8.7 MG/DL (8.5-10.1); CHLORIDE 103 MEQ/L (98-107); CREATININE 0.67 MG/DL (0.50-1.00); GLOMERULAR FILTRATION RATE 88 ML/MIN (>89); GLUCOSE,RANDOM 93 MG/DL (74-106); SODIUM (NA) 139 MEQ/L (136-145)
[2017-05-03 09:39] LABS: ALT (GPT) 20 U/L (10-53)
[2017-05-03 09:41] LABS: ALKALINE PHOSPHATASE 60 U/L (45-117); TOTAL BILIRUBIN ADULT 0.5 MG/DL (0.2-1.0)
--- NOTE | 2017-05-03 09:45 | RADRPT ---
EXAM DATE/TIME: 05/03/2017 09:35 [facility] COMPARISON: No previous studies available for comparison. INDICATIONS : Glioblastoma, surgical resection with PE and on heparin. Evaluate hemorrhage. RADIATION DOSE: 46.46 CTDIvol (mGy) MEDICAL HISTORY : Glioblastoma. SURGICAL HISTORY : Resection, brain. ENCOUNTER: Initial ACUITY: 1 day PAIN SCALE: 0/10 LOCATION: cranial TECHNIQUE: Multiple contiguous axial images were obtained of the head. Using automated exposure control and adjustment of the mA and/or kV according to patient size, radiation dose was kept as low as reasonably achievable to obtain optimal diagnostic quality images. DICOM format image data is av ailable electronically for review and comparison. FINDINGS: CEREBRUM: There is a focal area of postsurgical change identified within the left parietal region with a small lenticular shaped fluid collection adjacent to the craniotomy site. No significant mass effect. No intraparenchymal hemorrhage is identified. The ventricles are normal in size. No mass eff ect or midline shift. POSTERIOR FOSSA: The cerebellum and brainstem are intact. The 4th ventricle is midline. The cer ebellopontine angle is unremarkable. EXTRACRANIAL: The visualized portion of the orbits is intact. SKULL: Craniotomy involving the left parietal lobe. CONCLUSION: Postsurgical changes involving the left parietal lobe with no evidence of intraparenc hymal hemorrhage, mass effect or midline shift. Mary Carrizales MD on May 03, 2017 at 9:39 Board Certified Radiologist. This report was verified electronically.
[2017-05-03] MEDS ORDERED: INFLUENZA VIRUS VACCINE (QUADRIVALENT) 0.5 ML SYR IM ONE (10:00)
[2017-05-03 12:24] VITALS: BP 113/58; PULSE 81; RESP 18; TEMP 97.6; O2SAT 94
[2017-05-03] MEDS: HEPARIN 25,000 UNITS-D5W 250 ML - PREMIX IV PRN (14:18)
[2017-05-03 16:00] VITALS: BP 122/58; PULSE 85; RESP 18; TEMP 97.4; O2SAT 96
[2017-05-03] MEDS: DABIGATRAN ETEXILATE 150 MG CAP PO SCH (19:32)
[2017-05-03 20:00] VITALS: BP 128/58; PULSE 68; RESP 18; TEMP 97.6; O2SAT 95
[2017-05-03] MEDS: DOCUSATE SODIUM 50 MG/SENNA 8.6 MG TAB PO SCH (21:00)
[2017-05-03] MEDS: SODIUM CHLORIDE 0.9% FLUSH 10 ML FLUSH IV FLUSH SCH (21:13)
[2017-05-03] MEDS: PRAVASTATIN SOD 80 MG TAB PO SCH (21:13)
[2017-05-04] VITALS: BP_SYST 128; BP_SYST 147; BP_DIAS 56; BP_DIAS 69; PULSE 76; PULSE 78; RESP 16; TEMP 98.1; TEMP 98.3; O2SAT 95
[2017-05-04 04:00] VITALS: BP 147/69; PULSE 76; RESP 16; TEMP 98.1; O2SAT 95
[2017-05-04] MEDS: LEVOTHYROXINE SODIUM 25 MCG TAB PO SCH (05:55)
[2017-05-04] MEDS: LEVOTHYROXINE SODIUM 112 MCG TAB PO SCH (05:55)
[2017-05-04] MEDS: DABIGATRAN ETEXILATE 150 MG CAP PO SCH (06:02)
[2017-05-04 08:20] VITALS: BP 134/58; PULSE 78; RESP 18; TEMP 98.1; O2SAT 95
[2017-05-04] MEDS: DEXAMETHASONE 4 MG TAB PO SCH (09:00)
[2017-05-04] MEDS: DOCUSATE SODIUM 50 MG/SENNA 8.6 MG TAB PO SCH (09:00)
[2017-05-04] MEDS: SODIUM CHLORIDE 0.9% FLUSH 10 ML FLUSH IV FLUSH SCH (09:00)
[2017-05-04] MEDS: levETIRAcetam 500 MG TAB PO SCH (09:17)
[2017-05-04] MEDS: SERTRALINE HCL 50 MG TAB PO SCH (09:18)
[2017-05-04 09:22] LABS: AUTOMATED NEUTROPHIL # 2.4 TH/MM3 (1.8-7.7); BASOPHIL % 0.9 % (0.0-2.0); EOSINOPHIL # 0.2 TH/MM3 (0-0.4); EOSINOPHIL % 4.9 % (0.0-4.0); HEMATOCRIT 37.9 % (35.0-46.0); HEMOGLOBIN 13.2 GM/DL (11.6-15.3); LYMPH % 22.5 % (9.0-44.0); LYMPHOCYTE # 0.9 TH/MM3 (1.0-4.8); MEAN CELL VOLUME 88.7 FL (80.0-100.0); MEAN CORPUSCULAR HEMOGLOBIN 30.8 PG (27.0-34.0); MEAN CORPUSCULAR HGB CONC 34.8 % (32.0-36.0); MEAN PLATELET VOLUME 6.8 FL (7.0-11.0); MONO % 9.4 % (0.0-8.0); MONOCYTE # 0.4 TH/MM3 (0-0.9); NEUT % 62.3 % (16.0-70.0); PLATELET COUNT 182 TH/MM3 (150-450); RED BLOOD COUNT 4.27 MIL/MM3 (4.00-5.30); RED CELL DISTRIBUTION WIDTH 13.5 % (11.6-17.2); WHITE BLOOD COUNT 3.8 TH/MM3 (4.0-11.0)
[2017-05-04 09:42] LABS: CREATININE 0.64 MG/DL (0.50-1.00)
[2017-05-04 09:58] VITALS: O2SAT 95
[2017-05-04 12:01] VITALS: BP 127/62; PULSE 87; RESP 18; TEMP 97.6; O2SAT 96
--- NOTE | 2017-05-04 12:16 | HHI.DCPOC ---
Discharge Care Plan Diagnosis: (1) HLD (hyperlipidemia) (2) FEN (3) Lung nodule (4) Glioblastoma (5) Pulmonary embolism, bilateral (6) Hypothyroid Goals to Promote Your Health * To prevent worsening of your condition and complications * To maintain your health at the optimal level Directions to Meet Your Goals Take your medications as prescribed Follow your dietary instruction Follow activity as directed Keep your appointments as scheduled Take your immunizations and boosters as scheduled If your symptoms worsen call your PCP, if no PCP go to Urgent Care Center or Emergency Room Smoking is Dangerous to Your Health. Avoid second hand smoke Call the 24-hour hour crisis hotline for domestic abuse at Ramana Villar MD, R3 May 04, 2017 12:14
[2017-05-04] MEDS ORDERED: ENOX100P SQ ×2 (12:20)
--- NOTE | 2017-05-04 12:38 | HHI.FPPN ---
Subjective Remarks Doing well. Walked around the unit x2 without difficulty (100 yards approximately). No chest pain or headaches. Eating whole meals. No bleeding or stomach pain. Family wants for providers to contact [place] [facility] - Dr. Viviana Browne, , regarding anticoagulation. She is asking when she can go home. (Ramana Villar MD, R3) Objective Vitals Vital Signs Date Time Temp Pulse Resp B/P (MAP) Pulse Ox O2 Delivery O2 Flow Rate FiO2 05/04/17 12:01 97.6 87 18 127/62 (83) 96 05/04/17 09:58 95 05/04/17 08:20 98.1 78 18 134/58 (83) 95 05/04/17 04:00 98.1 76 16 147/69 (95) 95 05/04/17 00:00 98.3 78 16 128/56 (80) 95 05/03/17 20:00 97.6 68 18 128/58 (81) 95 05/03/17 16:00 97.4 85 18 122/58 (79) 96 I/O 05/03/17 05/03/17 05/03/17 05/04/17 05/04/17 05/04/17 07:00 15:00 23:00 07:00 15:00 23:00 Intake Total 720 ml 360 ml Balance 720 ml 360 ml Intake Oral 720 ml 360 ml # Voids 4 2 (Ramana Villar MD, R3) Result Diagram: 05/04/17 0816 05/04/17 0816 Objective Remarks GENERAL: Well-nourished, well-developed patient. No acute distress. SKIN: Warm and dry. No rash. EYES: No scleral icterus. No injection or drainage. PERRLA. EOMI. HENT: Normocephalic. Atraumatic. MMM. NECK: No visible JVD or lymphadenopathy. CARDIOVASCULAR: Warm and well perfused. RESPIRATORY: Normal respiratory effort. GASTROINTESTINAL: Abdomen nondistended. MUSCULOSKELETAL: Strength grossly WNL. Right PICC line in the upper arm. BACK: Without obvious deformity. NEURO/PSYCH: Afocal. Awake, alert, and oriented x3. (Ramana Villar MD, R3) A/P Assessment and Plan 67 y/o female with history of glioblastoma and recent brain surgery presents with shortness of breath, found to have bilateral pulmonary embolisms. Admit for workup and treatment. Oncology consulted by ED and recommended starting Heparin drip. Discharge Planning Today with Lovenox anticoagulation. Will need f/u with oncology which is scheduled for 05/10/2017. Will follow up with Dr. Thu Azul in 1-2 weeks. (Ramana Villar MD, R3) Attending Attestation Patient seen and examined with Dr. Villar. After discussion with Dr Aleksandar Garcia, decision was made to d/c home on therapeutic Lovenox (as opposed to Pradaxa). Bedside nursing education provided for patient. Outpatient follow-up with Dr. Campos within 1-2 weeks , scheduled to see Dr. Garcia later this week . Agree with plan of care as discussed with me and documented in the resident note. (Viviana De La Rosa MD) Problem List: (1) Pulmonary embolism, bilateral ICD Codes: I26.99 - Other pulmonary embolism without acute cor pulmonale Status: Acute Plan: SOB started several days ago. Risk factors include recent surgery and cancer. CXR: no acute disease CTA: Bilateral pulmonary emboli. Single 6mm pulmonary nodule right upper lung, recommend 6 month f/u Lower extremity US: DVT in right posterior tibia vein. -Transitioned to Pradaxa last night after 48 hours of heparin gtt. Will be started on Lovenox 1 mg / kg BID as an outpatient first dose today, as recommended by oncology. -Education provided by RN about lovenox injections. -Monitor vitals and for signs of bleeding. (2) Glioblastoma ICD Codes: C71.9 - Malignant neoplasm of brain, unspecified Status: Acute Plan: Glioblastoma just recently diagnosed and recent brain surgery as well -Continue Keppra for seizures -Continue Decadron -Oncology consulted -Neuro checks -Speech therapy consulted for evaluation and treatment if prolonged stay (3) Lung nodule ICD Codes: R91.1 - Solitary pulmonary nodule Plan: 6mm pulmonary nodule right upper lung noted on CTA. -Recommend 6 month follow up noncontrast CT -F/u outpatient (4) Hypothyroid ICD Codes: E03.9 - Hypothyroidism, unspecified Plan: TSH 2.1 Continue Synthroid (5) HLD (hyperlipidemia) ICD Codes: E78.5 - Hyperlipidemia, unspecified Plan: Continue Pravastatin (6) FEN Status: Acute Plan: Fluids: Tolerating PO. Electrolytes: wnl, continue to monitor. Nutrition: Regular diet. DVT ppx: Heparin gtt --> Pradaxa. Continue to monitor for signs of bleeding. Disposition: D/c home today as above. SDW Dr. De La Rosa. (Ramana Villar MD, R3) Problem Qualifiers (1) Hypothyroid: Qualified Codes: E03.9 - Hypothyroidism, unspecified (2) HLD (hyperlipidemia): Qualified Codes: E78.00 - Pure hypercholesterolemia, unspecified Ramana Villar MD, R3 May 04, 2017 12:38 Viviana De La Rosa MD May 04, 2017 18:32
--- NOTE | 2017-05-04 12:51 | HHI.DS ---
Discharge Summary Admission Date May 01, 2017 at 20:24 Admitting Diagnosis Bilateral PE/Recent Brain Surgery for Glioblastoma (1) Pulmonary embolism, bilateral Plan: SOB started several days ago. Risk factors include recent surgery and cancer. CXR: no acute disease CTA: Bilateral pulmonary emboli. Single 6mm pulmonary nodule right upper lung, recommend 6 month f/u Lower extremity US: DVT in right posterior tibia vein. -Transitioned to Pradaxa last night after 48 hours of heparin gtt. Will be started on Lovenox 1 mg / kg BID as an outpatient first dose today, as recommended by oncology. -Education provided by RN about lovenox injections. -Monitor vitals and for signs of bleeding. ICD Codes: I26.99 - Other pulmonary embolism without acute cor pulmonale Status: Acute (2) Glioblastoma Plan: Glioblastoma just recently diagnosed and recent brain surgery as well -Continue Keppra for seizures -Continue Decadron -Oncology consulted -Neuro checks -Speech therapy consulted for evaluation and treatment if prolonged stay ICD Codes: C71.9 - Malignant neoplasm of brain, unspecified Status: Acute (3) Lung nodule Plan: 6mm pulmonary nodule right upper lung noted on CTA. -Recommend 6 month follow up noncontrast CT -F/u outpatient ICD Codes: R91.1 - Solitary pulmonary nodule (4) Hypothyroid Plan: TSH 2.1 Continue Synthroid ICD Codes: E03.9 - Hypothyroidism, unspecified (5) HLD (hyperlipidemia) Plan: Continue Pravastatin ICD Codes: E78.5 - Hyperlipidemia, unspecified (6) FEN Plan: Fluids: Tolerating PO. Electrolytes: wnl, continue to monitor. Nutrition: Regular diet. DVT ppx: Heparin gtt --> Pradaxa. Continue to monitor for signs of bleeding. Disposition: D/c home today as above. SDW Dr. De La Rosa. Status: Acute Brief History 67 y/o female with history of glioblastoma, hypothyroid, HLD presents with shortness of breath. Pt just had brain surgery 3 weeks at [facility] (04/10). Then, she started having some SOB, contacted [facility] and her oncologist who recommended her to be evaluated for possible PE. She sees Dr. Garcia and Dr. Trujillo in [facility]. SOB started about 4 days ago, gotten worse each day. Denies any other symptoms at the time. Has had some headaches in the morning. No chest pain, did have cough after surgery and was taking antibiotics for that and finished course. SOB noticed when she was active , not at rest. No pain in her legs. Was only in hospital overnight. Stayed in town for a few days, drove back on 04/17. No long drives >1h or flights since then. Diagnosed with glioblastoma around April 06 after traveling to [place] and being there a week. She had a seizure and was then evaluated. She returned home and had surgery. She is going to have radiation and chemotherapy for 6 weeks, then reevaluation at [facility] then probably another year of chemotherapy. CBC/BMP: 05/04/17 0816 05/04/17 0816 Significant Findings Laboratory Tests Test 05/01/17 16:50 05/01/17 18:20 05/02/17 04:46 05/02/17 07:56 Mean Platelet Volume 6.8 FL (7.0-11.0) 6.8 FL (7.0-11.0) Neutrophils (%) (Auto) 74.8 % (16.0-70.0) Lymphocytes # (Auto) 0.9 TH/MM3 (1.0-4.8) Activated Partial Thromboplast Time 21.7 SEC (24.3-30.1) 119.2 SEC (24.3-30.1) 56.6 SEC (24.3-30.1) Random Glucose 107 MG/DL (74-106) Albumin 3.3 GM/DL (3.4-5.0) 2.8 GM/DL (3.4-5.0) Aspartate Amino Transf (AST/SGOT) 11 U/L (15-37) 10 U/L (15-37) Troponin I LESS THAN 0.02 NG/ML Red Blood Count 3.88 MIL/MM3 (4.00-5.30) Hematocrit 34.4 % (35.0-46.0) Total Protein 5.9 GM/DL (6.4-8.2) Calcium Level 8.3 MG/DL (8.5-10.1) Anion Gap 4 MEQ/L (5-15) Test 05/02/17 14:13 05/03/17 07:40 05/04/17 08:16 Activated Partial Thromboplast Time 49.2 SEC (24.3-30.1) 52.7 SEC (24.3-30.1) Mean Platelet Volume 6.8 FL (7.0-11.0) 6.8 FL (7.0-11.0) Eosinophils (%) (Auto) 4.5 % (0.0-4.0) 4.9 % (0.0-4.0) Total Protein 6.0 GM/DL (6.4-8.2) Albumin 2.8 GM/DL (3.4-5.0) Aspartate Amino Transf (AST/SGOT) 14 U/L (15-37) Estimat Glomerular Filtration Rate 88 ML/MIN (>89) White Blood Count 3.8 TH/MM3 (4.0-11.0) Monocytes (%) (Auto) 9.4 % (0.0-8.0) Lymphocytes # (Auto) 0.9 TH/MM3 (1.0-4.8) Random Glucose 107 MG/DL (74-106) PE at Discharge GENERAL: Well-nourished, well-developed patient. No acute distress. SKIN: Warm and dry. No rash. EYES: No scleral icterus. No injection or drainage. PERRLA. EOMI. HENT: Normocephalic. Atraumatic. MMM. NECK: No visible JVD or lymphadenopathy. CARDIOVASCULAR: Warm and well perfused. RESPIRATORY: Normal respiratory effort. GASTROINTESTINAL: Abdomen nondistended. MUSCULOSKELETAL: Strength grossly WNL. Right PICC line in the upper arm. BACK: Without obvious deformity. NEURO/PSYCH: Afocal. Awake, alert, and oriented x3. Hospital Course Mrs. Seymour is a very pleasant 67-year-old female with a past medical history significant for hyperlipidemia, essential hypertension, and hypothyroidism, who was admitted after 4 days of shortness of breath. She had a tumor resection of her left frontal temporal lobe, that was a glioblastoma. This was performed on 04/10/2017, at [facility]. She was diagnosed with lower lobe bilateral pulmonary emboli, and started on heparin drip. A repeat CT scan done after 24 hours of anticoagulation showed no bleeding into the brain. She remained asymptomatic during her hospitalization, and was transitioned to provide access for 24 hours, and eventually discharged home with Lovenox injections when made per kilogram given twice a day. She did well during her hospitalization, and was ambulatory without difficulty/shortness of breath prior to discharge. She does have follow-up with Dr. Andry Espinoza, as well as with her oncologist. Pt Condition on Discharge: Good Discharge Disposition: Discharge Home Discharge Instructions DIET: Follow Instructions for: As Tolerated, No Restrictions Activities you can perform: Regular-No Restrictions New Medications: Enoxaparin Inj (Lovenox Inj) 100 Mg/Ml Syr 90 MG SQ BID for Blood Clot Prevention, #20 SYRINGE 0 Refills Continued Medications: Dexamethasone (Dexamethasone) 2 Mg Tab 2 MG PO DAILY, #30 TAB 0 Refills Levetiracetam (Keppra) 1,000 Mg Tab 1000 MG PO BID for Control Seizures, #60 TAB 0 Refills Levothyroxine (Levothyroxine) 137 Mcg Tab 137 MCG PO DAILY for Thyroid, #30 TAB 0 Refills Multiple Vitamin (Multi-Vitamin Daily) 1 Tab Tab 1 TAB PO DAILY for Nutritional Supplement, TAB 0 Refills Sertraline (Sertraline) 50 Mg Tab 50 MG PO DAILY, #30 TAB 0 Refills Simvastatin (Simvastatin) 40 Mg Tab 40 MG PO HS for Cholesterol Management, #30 TAB 0 Refills Ramana Villar MD, R3 May 04, 2017 12:51
== END 2017-05-04 13:29 | disposition home or self-care (01) | DRG 176 ==
LOC: NEPC 16:15 → NEDA 20:24 → N05B 23:17 → NEDA 23:17 → N05B 05-02 00:10
PROVIDERS: ADMIT Family Medicine; ATTEND Family Medicine
DX: I26.99 Other pulmonary embolism without acute cor pulmonale (principal); C71.2 Malignant neoplasm of temporal lobe; D68.69 Other thrombophilia; I82.441 Acute embolism and thrombosis of right tibial vein; E03.9 Hypothyroidism, unspecified; G40.909 Epilepsy, unspecified, not intractable, without status epilepticus; R91.1 Solitary pulmonary nodule; E78.5 Hyperlipidemia, unspecified; E78.00 Pure hypercholesterolemia, unspecified; R06.03 Acute respiratory distress; R00.1 Bradycardia, unspecified; I10 Essential (primary) hypertension; Z80.3 Family history of malignant neoplasm of breast; Z85.828 Personal history of other malignant neoplasm of skin; Z88.0 Allergy status to penicillin
CPT/HCPCS: 70450; 71045; 71275; 80048; 80053; 81001; 82550; 83735; 84443; 84484; 85025; 85610; 85730; 93005; 93970; 96360; J1644; J7030; Q9967

== ENCOUNTER 2017-09-04 15:43 | Inpatient (IN) | payer OTHER, MEDICARE ==
[~2017-09-04] VITALS: Ht 175.3 cm; Wt 81.2 kg
[~2017-09-04 15:43] MED LIST changes: -CETI10 PO; +DEXA2TAB PO; +ENOX100P SQ; +KEPP10002 PO; -ZOFR4TAB PO
[2017-09-04 15:53] VITALS: BP 117/56; PULSE 81; RESP 18; TEMP 98.5; O2SAT 95
[2017-09-04] MEDS ORDERED: SODIUM CHLORIDE 0.9% FLUSH 10 ML FLUSH IVF PRN (16:15)
--- NOTE | 2017-09-04 16:18 | PD ---
HPI Chief Complaint: Neuro Symptoms/ Deficits Time Seen by Provider: 16:05 Travel History International Travel<30 days: No Contact w/Intl Traveler<30days: No Traveled to known affect area: No History of Present Illness HPI Patient has a history of brain CA, which is followed at [facility]. Presented to the ER complaining of a new seizure today, right facial twitching, decreased fine motor skills in the right hand, slurred speech which is worsening , and instability with her gait. All symptoms began at approximately 1030 today. She is currently on chemo. She denies fever, chills, nausea, vomiting, chest pain, dyspnea, visual change, urinary symptoms, neck pain, or back pain. PFSH Past Medical History Autoimmune Disease: No Cancer: Yes (GLIOBLASTOMA) High Cholesterol: Yes Chemotherapy: No Diabetes: No Diminished Hearing: No Endocrine: Yes Immune Disorder: No Psychiatric: No Immunizations Current: Yes Radiation Therapy: No Thyroid Disease: Yes (hypo) Menopausal: Yes : 4 Para: 4 Past Surgical History AICD: No Appendectomy: Yes Arteriovenous Shunt: No Insulin Pump: No Joint Replacement: No Pacemaker: No Tonsillectomy: Yes Other Surgery: Yes (TEMPORO-PARIETAL GLIOBLASTOMY RESECTION) Social History Alcohol Use: No Tobacco Use: No Substance Use: No Allergies-Medications (Allergen,Severity, Reaction): Coded Allergies: Penicillins (Verified Allergy, Severe, hives, 09/04/17) amoxicillin (Verified Allergy, Intermediate, hives, 09/04/17) Reported Meds & Prescriptions Reported Meds & Active Scripts Active Lovenox Inj (Enoxaparin Sodium) 100 Mg/Ml Syr 90 Mg SQ BID Sertraline (Sertraline HCl) 50 Mg Tab 50 Mg PO DAILY Levothyroxine (Levothyroxine Sodium) 137 Mcg Tab 137 Mcg PO DAILY Simvastatin 40 Mg Tab 40 Mg PO HS Reported Dexamethasone 2 Mg Tab 2 Mg PO DAILY Keppra (Levetiracetam) 1,000 Mg Tab 1,000 Mg PO BID Multi-Vitamin Daily (Multiple Vitamin) 1 Tab Tab 1 Tab PO DAILY Review of Systems Except as stated in HPI: all other systems reviewed are Neg Physical Exam Narrative GENERAL: No acute distress. SKIN: Focused skin assessment warm/dry. HEAD: Atraumatic. Normocephalic. EYES: Intraocular muscles intact bilaterally. No scleral icterus. No injection or drainage. ENT: No nasal bleeding or discharge. Mucous membranes pink and moist. NECK: Trachea midline. No JVD. CARDIOVASCULAR: Regular rate and rhythm. No murmur appreciated. RESPIRATORY: No accessory muscle use. Clear to auscultation. Breath sounds equal bilaterally. GASTROINTESTINAL: Abdomen soft, non-tender, nondistended. Hepatic and splenic margins not palpable. MUSCULOSKELETAL: No obvious deformities. No clubbing. No cyanosis. No edema. NEUROLOGICAL: Awake and alert. No obvious cranial nerve deficits. 4 out of 5 strength right upper and lower extremity, with 5 out of 5 strength left upper and left lower extremity. Slurred speech. PSYCHIATRIC: Appropriate mood and affect; insight and judgment normal. Data Data Last Documented VS Vital Signs Date Time Temp Pulse Resp B/P (MAP) Pulse Ox O2 Delivery O2 Flow Rate FiO2 09/04/17 16:31 16 98 Room Air 09/04/17 16:23 81 09/04/17 15:53 98.5 117/56 (76) Orders Orders Electrocardiogram (09/04/17 16:15) Prothrombin Time / Inr (Pt) (09/04/17 16:15) Act Partial Throm Time (Ptt) (09/04/17 16:15) Complete Blood Count With Diff (09/04/17 16:15) Comprehensive Metabolic Panel (09/04/17 16:15) Troponin I (09/04/17 16:15) Urinalysis - C+S If Indicated (09/04/17 16:15) Ct Brain W/O Iv Contrast(Rout) (09/04/17 16:15) Chest, Single Ap (09/04/17 16:15) Ecg Monitoring (09/04/17 16:15) Iv Access Insert/Monitor (09/04/17 16:15) Oximetry (09/04/17 16:15) Sodium Chloride 0.9% Flush (Ns Flush) (09/04/17 16:15) Mri Brain W&W/O Contrast (09/04/17 17:35) Dexamethasone Inj (Decadron Inj) (09/04/17 18:30) Consult Hematology (09/04/17 ) Levetiracetam (09/04/17 18:22) Consult Neurology (09/04/17 ) Potassium Chloride (Kcl) (09/04/17 18:30) (Hub Use Only)Inp Phy Cons/Ref (09/04/17 ) Labs Laboratory Tests Test 09/04/17 16:30 09/04/17 17:33 White Blood Count 2.8 TH/MM3 Red Blood Count 3.99 MIL/MM3 Hemoglobin 12.6 GM/DL Hematocrit 36.7 % Mean Corpuscular Volume 91.9 FL Mean Corpuscular Hemoglobin 31.7 PG Mean Corpuscular Hemoglobin Concent 34.4 % Red Cell Distribution Width 14.1 % Platelet Count 137 TH/MM3 Mean Platelet Volume 7.1 FL Neutrophils (%) (Auto) 78.1 % Lymphocytes (%) (Auto) 8.4 % Monocytes (%) (Auto) 9.0 % Eosinophils (%) (Auto) 4.0 % Basophils (%) (Auto) 0.5 % Neutrophils # (Auto) 2.2 TH/MM3 Lymphocytes # (Auto) 0.2 TH/MM3 Monocytes # (Auto) 0.2 TH/MM3 Eosinophils # (Auto) 0.1 TH/MM3 Basophils # (Auto) 0.0 TH/MM3 CBC Comment DIFF FINAL Differential Comment Prothrombin Time 10.3 SEC Prothromb Time International Ratio 1.0 RATIO Activated Partial Thromboplast Time 28.9 SEC Blood Urea Nitrogen 11 MG/DL Creatinine 0.97 MG/DL Random Glucose 136 MG/DL Total Protein 7.1 GM/DL Albumin 3.6 GM/DL Calcium Level 8.9 MG/DL Alkaline Phosphatase 44 U/L Aspartate Amino Transf (AST/SGOT) 21 U/L Alanine Aminotransferase (ALT/SGPT) 37 U/L Total Bilirubin 0.4 MG/DL Sodium Level 142 MEQ/L Potassium Level 3.4 MEQ/L Chloride Level 106 MEQ/L Carbon Dioxide Level 24.7 MEQ/L Anion Gap 11 MEQ/L Estimat Glomerular Filtration Rate 58 ML/MIN Troponin I LESS THAN 0.02 NG/ML Urine Color YELLOW Urine Turbidity HAZY Urine pH 5.0 Urine Specific [place] 1.014 Urine Protein NEG mg/dL Urine Glucose (UA) NEG mg/dL Urine Ketones NEG mg/dL Urine Occult Blood NEG Urine Nitrite NEG Urine Bilirubin NEG Urine Urobilinogen LESS THAN 2 mg/dL Urine Leukocyte Esterase NEG Urine WBC LESS THAN 1 /hpf Urine Squamous Epithelial Cells <1 /hpf Urine Mucus FEW /lpf Microscopic Urinalysis Comment CATH-CULT NOT IND MDM Medical Decision Making Medical Screen Exam Complete: Yes Emergency Medical Condition: Yes Interpretation(s) ECG: Sinus rhythm, rate 75, no ST elevation or depression Labs: Decreased WBC count, Last Impressions Head CT 09/04/171614 Signed Impressions: CONCLUSION: 1. Increasing edema in the left sylvian region in this patient with a history of glioblastoma. Recurrent tumor is suspected. MRI would be of benefit. Chest X-Ray 09/04/171614 Signed Impressions: CONCLUSION: Minimal bibasilar parenchymal changes, no failure Differential Diagnosis CVA, TIA, worsening brain CA, hydrocephalus, mass-effect/edema with brain CA Narrative Course She presents to the emergency department with worsening neuro symptoms with history of brain CA. Patient placed on a catering barista, IV access obtained, chest x-ray/EKG/labs/head CT ordered. MRI ordered based on CT results. Heme/onc consulted. 10 mg IV Decadron, 20 mEq of potassium, Keppra level, heme/onc and neurology formal consults ordered. 1911: Patient in MRI. Admit team will follow up on MRI. Physician Communication Physician Communication 1820: Dr. Maldonado, Heme/onc consulted. Give 10mg IV decadron, get MRI brain with and without, neurology consult, check keppra level, place formal consult for him and he will see tonight. Diagnosis Primary Impression: Hypokalemia Additional Impression: Brain cancer Qualified Codes: C71.9 - Malignant neoplasm of brain, unspecified Admitting Information Admitting Physician Requests: Admit Condition: Stable Anahi Ramirez MD Sep 04, 2017 16:17
[2017-09-04 16:31] VITALS: RESP 16; O2SAT 98
[2017-09-04 16:43] LABS: AUTOMATED NEUTROPHIL # 2.2 TH/MM3 (1.8-7.7); BASOPHIL % 0.5 % (0.0-2.0); EOSINOPHIL # 0.1 TH/MM3 (0-0.4); HEMATOCRIT 36.7 % (35.0-46.0); HEMOGLOBIN 12.6 GM/DL (11.6-15.3); LYMPH % 8.4 % (9.0-44.0); LYMPHOCYTE # 0.2 TH/MM3 (1.0-4.8); MEAN CELL VOLUME 91.9 FL (80.0-100.0); MEAN CORPUSCULAR HEMOGLOBIN 31.7 PG (27.0-34.0); MEAN CORPUSCULAR HGB CONC 34.4 % (32.0-36.0); MEAN PLATELET VOLUME 7.1 FL (7.0-11.0); MONOCYTE # 0.2 TH/MM3 (0-0.9); NEUT % 78.1 % (16.0-70.0); PLATELET COUNT 137 TH/MM3 (150-450); RED BLOOD COUNT 3.99 MIL/MM3 (4.00-5.30); RED CELL DISTRIBUTION WIDTH 14.1 % (11.6-17.2); WHITE BLOOD COUNT 2.8 TH/MM3 (4.0-11.0)
[2017-09-04 16:57] LABS: PROTHROMBIN TIME - PATIENT 10.3 SEC (9.8-11.6)
--- NOTE | 2017-09-04 16:58 | RADRPT ---
EXAM DATE: 09/04/2017 4:53 PM EDT AGE/SEX: 67 years / Female INDICATIONS: Facial twitching; slurred speech. CLINICAL DATA: This is the patient's initial encounter. Patient reports that signs and symptoms have been present for 1 day and indicates a pain score of 3/10. MEDICAL/SURGICAL HISTORY: . Glioblastoma Appendectomy. RADIATION DOSE: 56.35 CTDI (mGy) [place] [facility] [place]. . TECHNIQUE: CT of the head without contrast. Using automated exposure control and adjustment of the mA and/or kV according to patient size, radiation dose was kept as low as reasonably achievable to ob tain optimal diagnostic quality images. FINDINGS: Previous craniotomy on the left for tumor by history. There is increasing edema in the left sylvian r egion. Right hemisphere is unremarkable. There are no extra-axial fluid collections appreciated. Post erior fossa appears normal. CONCLUSION: 1. Increasing edema in the left sylvian region in this patient with a history of glioblastoma. Recur rent tumor is suspected. MRI would be of benefit. Electronically signed by: Art Buchanan MD 09/04/2017 4:56 PM EDT
--- NOTE | 2017-09-04 17:01 | RADRPT ---
EXAM DATE: 09/04/2017 4:54 PM EDT AGE/SEX: 67 years / Female INDICATIONS: Right sided facial droop and weka ness with dysphasia. CLINICAL DATA: This is the patient's initial encounter. Patient reports that signs and symptoms have been present for 1 day and indicates a pain score of 0/10. MEDICAL/SURGICAL HISTORY: . Hypercholesterolemia. Thyroid disease. . Tonsillectomy. Appendecto my. Neuro surgery. COMPARISON: [facility] – [place]ST SINGLE AP, 05/01/2017. . FINDINGS: Minimal bibasilar parenchymal changes worse on the left than the right. Heart is minimally enlarged. Pulmonary vascularity is normal. The portion of the bony skeleton visualized is unremarkable. CONCLUSION: Minimal bibasilar parenchymal changes, no failure Electronically signed by: Art Buchanan MD 09/04/2017 4:59 PM EDT
[2017-09-04 17:44] LABS: ALBUMIN 3.6 GM/DL (3.4-5.0); AST (GOT) 21 U/L (15-37); BICARBONATE 24.7 MEQ/L (21.0-32.0); BLOOD UREA NITROGEN 11 MG/DL (7-18); CALCIUM 8.9 MG/DL (8.5-10.1); CHLORIDE 106 MEQ/L (98-107); CREATININE 0.97 MG/DL (0.50-1.00); GLOMERULAR FILTRATION RATE 58 ML/MIN (>89); GLUCOSE,RANDOM 136 MG/DL (74-106); SODIUM (NA) 142 MEQ/L (136-145)
[2017-09-04 17:56] LABS: BILIRUBIN, URINE NEG (NEG); BLOOD, URINE NEG (NEG); GLUCOSE,URINE NEG (NEG); KETONE, URINE NEG (NEG); MUCUS URINE FEW /lpf (OCC); NITRITE,URINE NEG (NEG); SQUAMOUS EPITHELIAL CELL URINE <1 /hpf (0-5); URINE COLOR YELLOW (YELLW/STRAW); URINE LEUKOCYTE ESTERASE NEG (NEG)
[2017-09-04] MEDS ORDERED: POTASSIUM CHLORIDE 20 MEQ CONTROLLED RELEASE TAB PO ONE (18:30)
[2017-09-04] MEDS ORDERED: DEXAMETHASONE SOD PHOS 20 MG/5 ML VIAL IV PUSH ONE (18:30)
[2017-09-04 18:42] LABS: ALT (GPT) 37 U/L (10-53)
[2017-09-04] MEDS ORDERED: NALOXONE HCL 0.4 MG/ML AMP IV PUSH PRN (18:45)
[2017-09-04] MEDS ORDERED: MAGNESIUM HYDROXIDE SUSP 30 ML CUP PO PRN (18:45)
[2017-09-04] MEDS ORDERED: ACETAMINOPHEN 325 MG TAB PO PRN (18:45)
[2017-09-04] MEDS ORDERED: SODIUM CHLORIDE 0.9% FLUSH 10 ML FLUSH IV FLUSH PRN (18:45)
[2017-09-04] MEDS ORDERED: METOCLOPRAMIDE HCL 10 MG/2 ML VIAL IV PUSH PRN (18:45)
[2017-09-04 18:47] LABS: ALKALINE PHOSPHATASE 44 U/L (45-117); TOTAL BILIRUBIN ADULT 0.4 MG/DL (0.2-1.0); TOTAL PROTEIN 7.1 GM/DL (6.4-8.2); TROPONIN I LESS THAN 0.02 NG/ML (0.02-0.05)
[2017-09-04] MEDS ORDERED: GADODIAMIDE PF 287 MG/ML 5 ML VIAL (for RAD MRI) IVCONTRAST ONE (19:05)
--- NOTE | 2017-09-04 19:19 | HHI.HP ---
[facility] Service Family Medicine Primary Care Physician Thulatanya Azul MD Admission Diagnosis brain cancer with neuro symptoms/seizure Diagnoses: International Travel<30 Days: No Contact w/Intl Traveler<30days: No Known Affected Area: No History of Present Illness Patient is a 67-year-old female with a past medical history of primary glioblastoma multiforme, hypothyroidism, and hyperlipidemia that presents to the [facility] ED with her spouse after experiencing seizure-like activity. Patient states that around 10 AM this morning, she felt a "twinge in her right upper cheek and then lost feeling in that area. She noticed that her speech was much more slurry and she lost spine motor dexterity such that she could not grab a piece of paper or a doorknob. She went to her oncologist's office today where she met a nurse practitioner that asked her to reports to the ED. Her symptoms have improved but she still feels numb in her right upper cheek. She had this symptoms before she had seizures which led to her being diagnosed with a brain tumor while she was in [place]. Before today, patient states that she has been doing very well. In the last few months she actually went to [place] and traveled around the country to visit her grandchildren. She is currently on day 4 of 5 of oral chemotherapy. She is taking temozolomide 300 mg p.o. 5 days and then she is off for 23 days. This is her third cycle of 6, but [facility] where she is followed for her brain tumor and where she had her initial resection surgery is pushing for her to undergo 12 cycles of oral chemotherapy. She was last seen at [facility] on August 25 where she had an MRI and consulted with medical oncology on August 26. The MRI readings were determined to show a false progression of her tumor. She did not have any clinical symptoms. On review of systems, she reports feeling very fatigued but denies fever, chills , nausea, vomiting, chest pain, shortness of breath, vision problems, dysuria, neck or back pain. She did have violent episodes of nausea and vomiting on the first day of this third round of chemo but it resolved. She takes Zofran at home for nausea. Notably, patient was initially on Keppra 1000 mg twice daily and then was tapered down to 500 mg p.o. twice daily. The FISH PROTECTOR that she met today asked her to take an extra 500 mg dose today. She was last hospitalized at [facility] for pulmonary embolism on May 01, 2017. Review of Systems Constitutional: COMPLAINS OF: Fatigue, DENIES: Fever, Chills, Dizziness, Change in appetite, Night Sweats Eyes: DENIES: Blurred vision, Eye pain, Vision loss Ears, nose, mouth, throat: DENIES: Hearing loss, Running Nose, Sinus Pain Respiratory: DENIES: Cough, Shortness of breath Cardiovascular: DENIES: Chest pain Gastrointestinal: DENIES: Abdominal pain, Diarrhea, Nausea, Vomiting Genitourinary: DENIES: Abnormal vaginal bleeding, Dysuria, Vaginal discharge Musculoskeletal: DENIES: Joint pain, Back pain, Neck pain Integumentary: DENIES: Pruritus, Rash Neurologic: COMPLAINS OF: Paresthesias, Seizures, DENIES: Headache, Tremor Past Family Social History Past Medical History Glioblastoma multiforme * Craniotomy and resection of in 03/2017. She received concomitant Temodar and radiation treatment. She completed her radiation treatments on 06/16/2017. She is now on maintenance phase of Temodar and is taking Temodar 300 mg from day 1-5 of a 28-day cycle. Hypothyroidism Hyperlipidemia Past Surgical History Brain surgery - 04/10/17 Tonsillectomy in 1959 Appendectomy in 1990 (retrocecal) Basal cell carcinoma lesion (adan) in 2011 Reported Medications Reported Meds & Active Scripts Active Lovenox Inj (Enoxaparin Sodium) 100 Mg/Ml Syr 80 Mg SQ BID Sertraline (Sertraline HCl) 50 Mg Tab 50 Mg PO DAILY - taken for 5 days with Temodar Levothyroxine (Levothyroxine Sodium) 137 Mcg Tab 137 Mcg PO DAILY Simvastatin 40 Mg Tab 40 Mg PO HS Reported Dexamethasone 2 Mg Tab 2 Mg PO DAILY Keppra (Levetiracetam) 1,000 Mg Tab 1,000 Mg PO BID Multi-Vitamin Daily (Multiple Vitamin) 1 Tab Tab 1 Tab PO DAILY Allergies: Coded Allergies: Penicillins (Verified Allergy, Severe, hives, 09/04/17) amoxicillin (Verified Allergy, Intermediate, hives, 09/04/17) Family History Father: , stroke/heart attack/dementia Mother: , COPD, breast cancer Sibling(s): 2 sisters, both alive, both have hypothyroidism, one has a faulty heart valve Social History Marital status: Occupation: Teacher - retired in 2017 Smoking: Denies Alcohol: Occasional glass of wine Illicit or illegal prescription medication use: Denies Physical Exam Vital Signs Vital Signs Date Time Temp Pulse Resp B/P (MAP) Pulse Ox O2 Delivery O2 Flow Rate FiO2 09/04/17 16:31 16 98 Room Air 09/04/17 16:23 81 16 98 Room Air 09/04/17 15:53 98.5 81 18 117/56 (76) 95 Physical Exam GENERAL: This is a well-nourished, well-developed patient, in no apparent distress. SKIN: No rashes, ecchymoses or lesions. Cool and dry. HEAD: Atraumatic. Normocephalic. No temporal or scalp tenderness. EYES: Pupils equal round and reactive. Extraocular motions intact. No scleral icterus but eyes are mildly erythremic. No injection or drainage. ENT: Nose without bleeding, purulent drainage or septal hematoma. Throat without erythema, tonsillar hypertrophy or exudate. Uvula midline. Airway patent. Noticeable NECK: Trachea midline. No JVD or lymphadenopathy. Supple, nontender, no meningeal signs. CARDIOVASCULAR: Regular rate and rhythm without murmurs, gallops, or rubs. RESPIRATORY: Clear to auscultation. Breath sounds equal bilaterally. No wheezes , rales, or rhonchi. GASTROINTESTINAL: Abdomen soft, non-tender, nondistended. No hepato-splenomegaly , or palpable masses. No guarding. MUSCULOSKELETAL: Extremities without clubbing, cyanosis, or edema. No joint tenderness, effusion, or edema noted. No calf tenderness. NEUROLOGICAL: Awake and alert. Right facial nerve palsy due to skin numbness infra orbital on the right and right lip droop. Sensation reduced on the right side of her face compared to the left. Other cranial nerves intact. Five out of 5 muscle strength in all muscle groups. Cerebellar testing intact with normal finger to nose and heel-adan test. Slurred speech. Laboratory Laboratory Tests Test 09/04/17 16:30 09/04/17 17:33 White Blood Count 2.8 Red Blood Count 3.99 Hemoglobin 12.6 Hematocrit 36.7 Mean Corpuscular Volume 91.9 Mean Corpuscular Hemoglobin 31.7 Mean Corpuscular Hemoglobin Concent 34.4 Red Cell Distribution Width 14.1 Platelet Count 137 Mean Platelet Volume 7.1 Neutrophils (%) (Auto) 78.1 Lymphocytes (%) (Auto) 8.4 Monocytes (%) (Auto) 9.0 Eosinophils (%) (Auto) 4.0 Basophils (%) (Auto) 0.5 Neutrophils # (Auto) 2.2 Lymphocytes # (Auto) 0.2 Monocytes # (Auto) 0.2 Eosinophils # (Auto) 0.1 Basophils # (Auto) 0.0 CBC Comment DIFF FINAL Differential Comment Prothrombin Time 10.3 Prothromb Time International Ratio 1.0 Activated Partial Thromboplast Time 28.9 Blood Urea Nitrogen 11 Creatinine 0.97 Random Glucose 136 Total Protein 7.1 Albumin 3.6 Calcium Level 8.9 Alkaline Phosphatase 44 Aspartate Amino Transf (AST/SGOT) 21 Alanine Aminotransferase (ALT/SGPT) 37 Total Bilirubin 0.4 Sodium Level 142 Potassium Level 3.4 Chloride Level 106 Carbon Dioxide Level 24.7 Anion Gap 11 Estimat Glomerular Filtration Rate 58 Troponin I LESS THAN 0.02 Urine Color YELLOW Urine Turbidity HAZY Urine pH 5.0 Urine Specific Treece 1.014 Urine Protein NEG Urine Glucose (UA) NEG Urine Ketones NEG Urine Occult Blood NEG Urine Nitrite NEG Urine Bilirubin NEG Urine Urobilinogen LESS THAN 2 Urine Leukocyte Esterase NEG Urine WBC LESS THAN 1 Urine Squamous Epithelial Cells <1 Urine Mucus FEW Microscopic Urinalysis Comment CATH-CULT NOT IND Result Diagram: 09/04/17 1630 09/04/17 1630 Imaging Last Impressions Brain MRI 09/04/17 1735 Signed Impressions: CONCLUSION: 1. Thick-walled rim-enhancing lesion in the left frontoparietal region measuri ng up to 2.9 x 2.2 cm with surrounding edema and localized mass effect. Primary differential diagnosis is recurrent or residual glioblastoma. I do not have th e benefit of prior MRI. Head CT 09/04/17 161 Signed Impressions: CONCLUSION: 1. Increasing edema in the left sylvian region in this patient with a history of glioblastoma. Recurrent tumor is suspected. MRI would be of benefit. Chest X-Ray 09/04/17 161 Signed Impressions: CONCLUSION: Minimal bibasilar parenchymal changes, no failure Course In the ED, a CT scan was performed which showed increasing edema in the left sylvian region and an MRI was ordered based on the CT scan results which was concerning for residual disease or recurrent disease. Oncology was consulted and requested a neurology consult. Patient was administered 10 mg IV Decadron and 20 M EQ potassium for low potassium level. Caprini VTE Risk Assessment Caprini VTE Risk Assessment: Mod/High Risk (score >= 2) Caprini Risk Assessment Model Point Value = 1 Point Value = 2 Point Value = 3 Point Value = 5 Age 41-60 Minor surgery BMI > 25 kg/m2 Swollen legs Varicose veins or History of unexplained or recurrent spontaneous Oral contraceptives or hormone replacement Sepsis (< 1 month) Serious lung disease, including pneumonia (< 1 month) Abnormal pulmonary function Acute myocardial infarction Congestive heart failure (< 1 month) History of inflammatory bowel disease Medical patient at bed rest Age 61-74 Arthroscopic surgery Major open surgery (> 45 min) Laparoscopic surgery (> 45 min) Malignancy Confined to bed (> 72 hours) Immobilizing plaster cast Central venous access Age >= 75 History of VTE Family history of VTE Factor V Leiden Prothrombin [id number] Lupus anticoagulant Anticardiolipin antibodies Elevated serum homocysteine Heparin-induced thrombocytopenia Other congenital or acquired thrombophilia Stroke (< 1 month) Elective arthroplasty Hip, pelvis, or leg fracture Acute spinal cord injury (< 1 month) Prophylaxis Regimen Total Risk Factor Score Risk Level Prophylaxis Regimen 0-1 Low Early ambulation 2 Moderate Order ONE of the following: *Sequential Compression Device (SCD) *Heparin 5000 units SQ BID 3-4 Higher Order ONE of the following medications: *Heparin 5000 units SQ TID *Enoxaparin/Lovenox 40 mg SQ daily (WT < 150 kg, CrCl > 30 mL/min) *Enoxaparin/Lovenox 30 mg SQ daily (WT < 150 kg, CrCl > 10-29 mL/min) *Enoxaparin/Lovenox 30 mg SQ BID (WT < 150 kg, CrCl > 30 mL/min) AND/OR *Sequential Compression Device (SCD) 5 or more Highest Order ONE of the following medications: *Heparin 5000 units SQ TID (Preferred with Epidurals) *Enoxaparin/Lovenox 40 mg SQ daily (WT < 150 kg, CrCl > 30 mL/min) *Enoxaparin/Lovenox 30 mg SQ daily (WT < 150 kg, CrCl > 10-29 mL/min) *Enoxaparin/Lovenox 30 mg SQ BID (WT < 150 kg, CrCl > 30 mL/min) AND *Sequential Compression Device (SCD) Assessment and Plan Assessment and Plan 67 year old female with past medical history of glioblastoma presents with neurological symptoms that are concerning for a seizure related to her brain tumor. At this time it is unclear if she has recurrence of the brain tumor. Code Status Full code Discussed Condition With ED physician Dr. Ramirez Oncologist Dr. Maldonado Problem List: (1) Seizure ICD Codes: R56.9 - Unspecified convulsions Plan: -Admit to inpatient -Continue Keppra at increased dose of 1000 mg p.o. twice daily -Keppra level pending -Neurology consult pending -Bedside swallow test -Seizure precautions (2) Glioblastoma multiforme ICD Codes: C71.9 - Malignant neoplasm of brain, unspecified Plan: -Concern for recurrent disease versus pseudo-progression -Oncology on board * Spoke with Dr. Maldonado who is leaning more towards recurrent disease * Recommends that patient [facility] to [facility] evaluation * Start Decadron 4 mg p.o. every 6 hours -Speech therapy consult in the morning - pt has not been on any dietary restrictions and does not have any issues with swallowing -Neurochecks every 4 hours (3) Hypothyroidism ICD Codes: E03.9 - Hypothyroidism, unspecified Plan: -Continue levothyroxine at 137 mcg p.o. daily (4) HLD (hyperlipidemia) ICD Codes: E78.5 - Hyperlipidemia, unspecified Plan: -Continue simvastatin at 40 mg p.o. daily (5) Hypokalemia ICD Codes: E87.6 - Hypokalemia Status: Acute Plan: -Received 20 Meq. potassium in the ED -Will monitor and replace as needed (6) FEN Status: Acute Plan: Fluids: NS @ 70 mls/hr IV Electrolytes: Will monitor and replace as needed Nutrition: Heart healthy diet after she passed bedside swallow test DVT Prophylaxis: Lovenox 80 mg subcu twice daily GI Prophylaxis: Famotidine 20 mg p.o. twice daily Constipation prophylaxis: Pericolace 1 tab PO BID PRN Medications Tylenol 650 mg by mouth every 4 hours when necessary pain 1-10 or temperature greater than 100.4F Zofran 8 mg PO every 6 hours when necessary nausea vomiting Vasotec 1.25 mg IV PRN SBP greater than 170 or DBP greater than 100 Ambien 5mg PO HS or Vistaril 50mg PO HS -Vitals Q4h -Monitor I's and O's -Fall precautions -Neurochecks -Seizure precautions -Activity OOB with assistance -PT to assist with ambulation -Case management consult to assist with discharge disposition Physician Certification 2 Midnight Certification Type: Admission for Inpatient Services Order for Inpatient Services The services are ordered in accordance with Medicare regulations or non- Medicare payer requirements, as applicable. In the case of services not specified as inpatient-only, they are appropriately provided as inpatient services in accordance with the 2-midnight benchmark. Estimated LOS (days): 2 days is the estimated time the patient will need to remain in the hospital, assuming treatment plan goals are met and no additional complications. Post-Hospital Plan: Thu Garcia MD R2 Sep 04, 2017 19:19
--- NOTE | 2017-09-04 19:34 | RADRPT ---
EXAM DATE: 09/04/2017 7:18 PM EDT AGE/SEX: 67 years / Female INDICATIONS: Mass. New symptoms of facial twitching, right sided numbness and slurred speech. CLINICAL DATA: This is the patient's initial encounter. Patient reports that signs and symptoms have been present for 1 day and indicates a pain score of 4/10. MEDICAL/SURGICAL HISTORY: . Glioblastoma since 04/05/17 Tonsillectomy. Appendectomy. Cranioto my. COMPARISON: No prior exams available for comparison. TECHNIQUE: Multiplanar, multisequence examination of the brain was performed without and with 16 ml O mniscan (gadodiamide) contrast as a single exam dose. FINDINGS: There is a rim-enhancing 2.9 x 2.2 cm mass in the left frontoparietal region with surrounding edema a nd mild localized mass effect. No midline shift. No prior MRI available for comparison. There is a re ported history of glioblastoma. Increasing edema seen on recent CT is most characteristic of a tumor recurrence or progression. No recent infarct on the diffusion-weighted images. No right-sided hemisph trudy lesions identified. CONCLUSION: 1. Thick-walled rim-enhancing lesion in the left frontoparietal region measuring up to 2.9 x 2.2 cm with surrounding edema and localized mass effect. Primary differential diagnosis is recurrent or resi dual glioblastoma. I do not have the benefit of prior MRI. Electronically signed by: Aaron Tovar MD 09/04/2017 7:32 PM EDT
[2017-09-04] MEDS: SODIUM CHLOR 0.9% 1000 ML INJ 1,000 ML IV SCH ×2 (20:10→20:21)
[2017-09-04 20:13] VITALS: BP 160/77; PULSE 71; RESP 20; O2SAT 99
[2017-09-04] MEDS: SODIUM CHLORIDE 0.9% FLUSH 10 ML FLUSH IV FLUSH SCH (20:21)
[2017-09-04] MEDS ORDERED: ENOX100P SQ (20:59)
[2017-09-04 21:00] VITALS: BP 155/67; PULSE 73; RESP 18; TEMP 98.2; O2SAT 97
[2017-09-04] MEDS: ENOXAPARIN SODIUM 80 MG/0.8 ML SYRINGE SQ SCH (21:00)
[2017-09-04] MEDS ORDERED: PRAVASTATIN SOD 80 MG TAB PO SCH (21:00)
[2017-09-04] MEDS: levETIRAcetam 500 MG TAB PO SCH (21:00)
[2017-09-04] MEDS ORDERED: ZOLPIDEM TARTRATE 5 MG TAB PO PRN (21:15)
[2017-09-04] MEDS ORDERED: ONDANSETRON ODT 4 MG TAB PO PRN (21:15)
[2017-09-04] MEDS ORDERED: ENALAPRILAT 1.25 MG/ML VIAL IV PUSH PRN (21:15)
--- NOTE | 2017-09-04 21:45 | MB ---
cc: Bunny Maldonado MD, Richard MD DATE: 09/04/2017 REASON FOR CONSULTATION: 1. Glioblastoma left frontoparietal region, status post gross resection, radiation therapy with Temodar and currently on oral Temodar. 2. Recurrent seizure. 3. MRI suggesting recurrent disease or pseudo progression. PATIENT PROFILE: The patient is a 67-year-old white female. She is x 1. She has 4 children. She was born in [place]. She lives in [place], [place]. She does not smoke. Alcohol intake is rare. 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 HISTORY OF PRESENT ILLNESS: The patient is a 67-year-old female who was well until 02/2017 when she developed a seizure and right-sided weakness. She was subsequently evaluated at [facility] and found to have radiographic studies consistent with a glioblastoma multiforme in the left frontoparietal area. She underwent a gross total resection of the tumor at [facility] by Dr. Barrera on 04/10/2017 . Following this, she was treated with radiation therapy and concomitant Temodar. Radiation oncologist was Dr. Trujillo. Treatment was completed on 06/16/2017. Following this, she has been undergoing treatment with oral Temodar 150 mg/m2 daily for 5 days every 4 weeks. The dose of Temodar is 300 mg. Today was day 4 of the Temodar. She has 1 more day remaining. Today, she developed a seizure with twitching of the right side of the face and an expressive aphasia. She went to the emergency room and had a CAT scan and MRI of the brain. I reviewed the MRI of the brain with the patient and the and she has a 2.9 x 2 cm mass in the left frontoparietal region with surrounding edema and localized mass effect. Nine days ago, she was at [facility] and she had an MRI of the brain. The patient's tells me that they felt that this might be pseudo progression, although they could not rule out recurrent disease. They did not give her any Decadron at that time, although they did mention to her that there was a slight amount of edema. She was previously on Keppra 1000 mg twice a day. It has been gradually tapered and she is now taking 500 mg twice a day. At the present time, she is about 80% recovered from the acute events of today. She still has a persistent expressive aphasia and a small amount of clumsiness with walking. PAST SURGICAL HISTORY: 1. 04/10/2017 resection of a glioblastoma multiforme by Dr. Barrera at [facility]. 2. Appendectomy. 3. Tonsillectomy. 4. Removal of basal cell cancer involving skin. PAST MEDICAL HISTORY 1. Hypothyroidism. 2. Elevated cholesterol. 3. Obsessive-compulsive disorder 4. Diagnosis of glioblastoma multiforme as described abovE 5. Pulmonary Emboli 05/01/2017 ALLERGIES: PENICILLIN. MEDICATIONS PRIOR TO ADMISSION: 1. Temodar 300 mg daily for 5 days every 4 weeks. She has 1 day remaining. 2. Olanzapine 5 mg prior to the Temodar. 3. Levothyroxine 0.1375 mg daily. 4. Keppra 500 mg p.o. b.i.d. 5. Zoloft 50 mg a day. 6. Simvastatin. 7. Lovenox 80 mg subcutaneously b.i.d. for previous history of pulmonary embolus. REVIEW OF SYSTEMS: No change in vision or hearing. No chest pain, palpitations, no shortness of breath or cough. No abdominal or pelvic pain. No melena. No problem passing urine. The only problem has been the expressive aphasia and recent seizure and right facial weakness. PHYSICAL EXAMINATION: GENERAL: Reveals a well-appearing female. She has a definite expressive aphasia. VITAL SIGNS: Blood pressure is 160/70, respiratory rate 20, pulse 70, afebrile, O2 sat is 99%. HEENT: Head is normocephalic. Sclerae and conjunctivae are normal. Oropharynx unremarkable. NECK: No adenopathy. HEART: Regular rhythm. LUNGS: Clear. ABDOMEN: Without hepatosplenomegaly or mass. EXTREMITIES: No edema. MUSCULOSKELETAL: No bone pain. NEUROLOGIC: Slight right facial weakness. Definite mild expressive aphasia. ASSESSMENT AND PLAN: 1. Patient has had a seizure. Her Keppra dose was decreased to 500 p.o. b.i.d. Increase Keppra to 1000 mg p.o. b.i.d. and consult neurology. 2. I am very concerned that she has recurrent glioblastoma. This will best be determined by [facility]. In any case, the FLAIR studies show a significant amount of edema. I am starting her on Decadron 4 mg 4 times a day. 3. Previous history of pulmonary emboli. There is no evidence of intracranial hemorrhage. Continue Lovenox. In looking through her records, she had a bilateral pulmonary emboli dating back to 05/01/2017. Would recommend to continue levothyroxine and Zoloft. 4. I took a photo of the MRI images of the brain and sent them to the patient's who will forward them to [facility] to assist in her evaluation. 5. Home in next day or two on Decadron, seizure medicines, and protonix or other similar medicine. Will need to taper the Decadron. MD CHAVA Guadarrama/ , 09:13 PM , 09:43 PM MTDJayla
[2017-09-04] MEDS: DEXAMETHASONE 4 MG TAB PO SCH (22:16)
[2017-09-04 23:45] VITALS: BP 112/65; PULSE 85; RESP 18; TEMP 99; O2SAT 94
[2017-09-05 03:55] VITALS: BP 101/59; PULSE 89; RESP 18; TEMP 98.5; O2SAT 94
[2017-09-05] MEDS ORDERED: LEVOTHYROXINE SODIUM 25 MCG TAB PO SCH (06:00)
[2017-09-05] MEDS ORDERED: LEVOTHYROXINE SODIUM 112 MCG TAB PO SCH (06:00)
[2017-09-05 06:23] LABS: AUTOMATED NEUTROPHIL # 2.1 TH/MM3 (1.8-7.7); BASOPHIL % 0.1 % (0.0-2.0); EOSINOPHIL % 0.1 % (0.0-4.0); HEMATOCRIT 36.4 % (35.0-46.0); HEMOGLOBIN 12.6 GM/DL (11.6-15.3); LYMPH % 7.8 % (9.0-44.0); LYMPHOCYTE # 0.2 TH/MM3 (1.0-4.8); MEAN CELL VOLUME 90.9 FL (80.0-100.0); MEAN CORPUSCULAR HEMOGLOBIN 31.5 PG (27.0-34.0); MEAN CORPUSCULAR HGB CONC 34.6 % (32.0-36.0); MEAN PLATELET VOLUME 6.9 FL (7.0-11.0); MONO % 1.7 % (0.0-8.0); NEUT % 90.3 % (16.0-70.0); PLATELET COUNT 143 TH/MM3 (150-450); RED BLOOD COUNT 4.01 MIL/MM3 (4.00-5.30); RED CELL DISTRIBUTION WIDTH 13.6 % (11.6-17.2); WHITE BLOOD COUNT 2.4 TH/MM3 (4.0-11.0)
[2017-09-05] MEDS: DEXAMETHASONE 4 MG TAB PO SCH ×2 (06:46→12:35)
[2017-09-05 06:56] LABS: ALBUMIN 3.3 GM/DL (3.4-5.0); ALT (GPT) 34 U/L (10-53); AST (GOT) 19 U/L (15-37); BICARBONATE 22.1 MEQ/L (21.0-32.0); BLOOD UREA NITROGEN 10 MG/DL (7-18); CALCIUM 8.7 MG/DL (8.5-10.1); CHLORIDE 111 MEQ/L (98-107); CREATININE 0.86 MG/DL (0.50-1.00); GLOMERULAR FILTRATION RATE 66 ML/MIN (>89); GLUCOSE,RANDOM 169 MG/DL (74-106); SODIUM (NA) 142 MEQ/L (136-145)
[2017-09-05 06:58] LABS: ALKALINE PHOSPHATASE 45 U/L (45-117); TOTAL BILIRUBIN ADULT 0.3 MG/DL (0.2-1.0); TOTAL PROTEIN 6.8 GM/DL (6.4-8.2)
[2017-09-05 08:00] VITALS: BP 155/72; PULSE 70; RESP 18; TEMP 97.3; O2SAT 94
[2017-09-05] MEDS ORDERED: DEXA4TAB PO (08:33)
[2017-09-05] MEDS ORDERED: KEPP10002 PO (08:34)
--- NOTE | 2017-09-05 08:34 | HHI.DCPOC ---
Discharge Care Plan Diagnosis: (1) Glioblastoma multiforme (2) Seizure Goals to Promote Your Health * To prevent worsening of your condition and complications * To maintain your health at the optimal level Directions to Meet Your Goals Take your medications as prescribed Follow your dietary instruction Follow activity as directed Keep your appointments as scheduled Take your immunizations and boosters as scheduled If your symptoms worsen call your PCP, if no PCP go to Urgent Care Center or Emergency Room Smoking is Dangerous to Your Health. Avoid second hand smoke Call the 24-hour hour crisis hotline for domestic abuse at Greta Wilson MD R3 Sep 05, 2017 08:34
[2017-09-05] MEDS: ENOXAPARIN SODIUM 80 MG/0.8 ML SYRINGE SQ SCH (09:00)
[2017-09-05] MEDS: levETIRAcetam 500 MG TAB PO SCH (09:00)
[2017-09-05] MEDS ORDERED: SERTRALINE HCL 50 MG TAB PO SCH (09:00)
[2017-09-05] MEDS: SODIUM CHLORIDE 0.9% FLUSH 10 ML FLUSH IV FLUSH SCH (09:00)
[2017-09-05] MEDS ORDERED: MULTIVITAMIN TAB PO SCH (09:00)
[2017-09-05] MEDS ORDERED: FAMOTIDINE 20 MG TAB PO SCH (09:00)
[2017-09-05] MEDS ORDERED: DOCUSATE SODIUM 50 MG/SENNA 8.6 MG TAB PO SCH (09:00)
--- NOTE | 2017-09-05 09:39 | PD.CONS ---
History of Present Illness Service Neurology Consult Requested By [facility] for breakthrough seizure Primary Care Physician Thu Azul MD History of Present Illness 67-year-old female admitted for focal seizure. States she had a numbness right side of her face right arm as well as twitching of the right side of her face slightly in the right upper extremity history of her initial seizure in March 2017 involving the right side ultimately found to have left hemispheric mass biopsy found to be GBM. She has been treated at [facility] for this. He has had radiation treatment oral chemotherapy and resection. She is on Keppra 1000 mg twice daily dose is titrated down to 500 mg twice daily. She had a repeat she had a MRI brain scan performed at this hospital which demonstrated the left hemispheric mass with surrounding edema. There is no previous MRI to compare to at present. Keppra dose is increased to 1000 twice daily in conjunction with oral dexamethasone. She has had no further events and feels well. Spouse is at bedside. Review of Systems As above rest of 12 point negative and as per admission H&P Past Family Social History Past Medical History Glioblastoma multiforme Hypothyroidism Hyperlipidemia Past Surgical History Brain surgery - 04/10/17 Tonsillectomy in 9 Appendectomy in 1990 (retrocecal) Basal cell carcinoma lesion (adan) in 2011 Reported Medications Reported Meds & Active Scripts Active Lovenox Inj (Enoxaparin Sodium) 100 Mg/Ml Syr 80 Mg SQ BID Sertraline (Sertraline HCl) 50 Mg Tab 50 Mg PO DAILY - taken for 5 days with Temodar Levothyroxine (Levothyroxine Sodium) 137 Mcg Tab 137 Mcg PO DAILY Simvastatin 40 Mg Tab 40 Mg PO HS Keppra 500 mg p.o. twice daily Multi-Vitamin Daily (Multiple Vitamin) 1 Tab Tab 1 Tab PO DAILY Allergies: Coded Allergies: Penicillins (Verified Allergy, Severe, hives, 09/04/17) amoxicillin (Verified Allergy, Intermediate, hives, 09/04/17) Family History Father: , stroke/heart attack/dementia Mother: , COPD, breast cancer Sibling(s): 2 sisters, both alive, both have hypothyroidism, one has a faulty heart valve Social History Denies any denies any illicit drug use tobacco use occasional alcohol use Review of Systems All other ROS: ROS reviewed as documented in chart Past Family Social History Allergies: Coded Allergies: Penicillins (Verified Allergy, Severe, hives, 09/04/17) amoxicillin (Verified Allergy, Intermediate, hives, 09/04/17) Active Ordered Medications Current Medications Medications (Trade) Dose Ordered Sig/Wilson Route Start Time Stop Time Status Last Admin Sodium Chloride 1,000 ml @ 70 mls/hr [id number] IV 09/04/17 18:40 09/04/17 20:21 (NS Flush) 2 ml UNSCH PRN IV FLUSH 09/04/17 18:45 (NS Flush) 2 ml BID IV FLUSH 09/04/17 21:00 09/04/17 20:21 (Reglan Inj) 5 mg Q6H PRN IV PUSH 09/04/17 18:45 (Tylenol) 650 mg Q6H PRN PO 09/04/17 18:45 (Narcan Inj) 0.4 mg UNSCH PRN IV PUSH 09/04/17 18:45 (Milk Of Magnmehreen Liq) 30 ml Q12H PRN PO 09/04/17 18:45 (Keppra) 1,000 mg Q12HR PO 09/04/17 21:00 (Decadron) 4 mg Q6HR PO 09/04/17 00:00 09/05/17 06:46 (Lovenox Inj) 80 mg BID SQ 09/04/17 21:00 (Zoloft) 50 mg DAILY PO 09/05/17 09:00 (Synthroid) 112 mcg DAILY@0600 PO 09/05/17 06:00 (Theragran) 1 tab DAILY PO 09/05/17 09:00 (Pravachol) 80 mg HS PO 09/04/17 21:00 (Pepcid) 20 mg BID PO 09/05/17 09:00 (Alejandra-Colace) 1 tab BID PO 09/05/17 09:00 (Zofran Odt) 8 mg Q6H PRN PO 09/04/17 21:15 (Vasotec Inj) 1.25 mg Q6H PRN IV PUSH 09/04/17 21:15 (Ambien) 5 mg HS PRN PO 09/04/17 21:15 (Synthroid) 25 mcg DAILY@0600 PO 09/05/17 06:00 Exam I&O / VS Vital Signs Date Time Temp Pulse Resp B/P (MAP) Pulse Ox O2 Delivery O2 Flow Rate FiO2 09/05/17 08:00 97.3 70 18 155/72 (99) 94 09/05/17 03:55 98.5 89 18 101/59 (73) 94 09/04/17 23:45 99.0 85 18 112/65 (81) 94 09/04/17 21:00 98.2 73 18 155/67 (96) 97 09/04/17 20:13 71 20 160/77 (104) 99 Room Air 09/04/17 20:13 09/04/17 16:31 16 98 Room Air 09/04/17 16:23 81 16 98 Room Air 09/04/17 15:53 98.5 81 18 117/56 (76) 95 General: Alert and Oriented, No acute distress Eye: EOMI Cardiology: Normal rate Musculoskeletal: ROM Neurologic: Alert, Oriented, Normal sensory, Normal DTR's Psychiatric: Cooperative, Appropriate mood & affect Exam Comments Awake alert oriented 3 fluent articulate but disfluent calm pleasant. Extraocular movements intact reduced right nasal nasolabial fold. No involuntary movements or jerking noted. Slightly reduced fine finger movements in the right hand otherwise no pronator drift gait steady Review/Management Diagnosis/Plan: (1) Recurrent seizures ICD Codes: G40.909 - Epilepsy, unspecified, not intractable, without status epilepticus Status: Acute Plan: Suspect related to increased edema around the mass which is mentioned by oncology may represent recurrent tumor/progression In addition the reduced dose of Keppra may have played a part Recommendations Keppra 1000 twice daily She has been placed on dexamethasone which should be helpful in reducing the edema thereby reducing the probability of recurrent seizure Follow-up Keppra level No driving or operating any heavy machinery swimming alone for at least 6 months being seizure spell free Patient can be discharged from my standpoint and have her follow-up with me in the office in 1-2 weeks phone #[phone] (2) Glioblastoma multiforme ICD Codes: C71.9 - Malignant neoplasm of brain, unspecified Status: Chronic Plan: On steroids, has had radiation treatment, on Temodar Follow [facility] Left eye small cortical mass appears to affect the motor sulcus (3) Hypothyroidism ICD Codes: E03.9 - Hypothyroidism, unspecified Status: Chronic Plan: Thyroid replacement (4) HLD (hyperlipidemia) ICD Codes: E78.5 - Hyperlipidemia, unspecified Status: Chronic Plan: Lipid control Garewal,Anibal MD Sep 05, 2017 09:39
--- NOTE | 2017-09-05 10:54 | PD.ONC.PN ---
Subjective Subjective Remarks Speech improved Improved dexterity of right hand No longer unsteady with ambulation Objective Data Date Time Temp Pulse Resp B/P (MAP) Pulse Ox O2 Delivery O2 Flow Rate FiO2 09/05/17 08:00 97.3 70 18 155/72 (99) 94 09/05/17 03:55 98.5 89 18 101/59 (73) 94 09/04/17 23:45 99.0 85 18 112/65 (81) 94 09/04/17 21:00 98.2 73 18 155/67 (96) 97 09/04/17 20:13 71 20 160/77 (104) 99 Room Air 09/04/17 20:13 09/04/17 16:31 16 98 Room Air 09/04/17 16:23 81 16 98 Room Air 09/04/17 15:53 98.5 81 18 117/56 (76) 95 09/05/17 09/05/17 09/05/17 07:00 15:00 23:00 Intake Total 420 ml Balance 420 ml Result Diagram: 09/05/17 0556 09/05/17 0556 Laboratory Results Laboratory Tests Test 09/04/17 16:30 09/04/17 17:33 09/04/17 20:15 09/05/17 05:56 White Blood Count 2.8 TH/MM3 2.4 TH/MM3 Red Blood Count 3.99 MIL/MM3 4.01 MIL/MM3 Hemoglobin 12.6 GM/DL 12.6 GM/DL Hematocrit 36.7 % 36.4 % Mean Corpuscular Volume 91.9 FL 90.9 FL Mean Corpuscular Hemoglobin 31.7 PG 31.5 PG Mean Corpuscular Hemoglobin Concent 34.4 % 34.6 % Red Cell Distribution Width 14.1 % 13.6 % Platelet Count 137 TH/MM3 143 TH/MM3 Mean Platelet Volume 7.1 FL 6.9 FL Neutrophils (%) (Auto) 78.1 % 90.3 % Lymphocytes (%) (Auto) 8.4 % 7.8 % Monocytes (%) (Auto) 9.0 % 1.7 % Eosinophils (%) (Auto) 4.0 % 0.1 % Basophils (%) (Auto) 0.5 % 0.1 % Neutrophils # (Auto) 2.2 TH/MM3 2.1 TH/MM3 Lymphocytes # (Auto) 0.2 TH/MM3 0.2 TH/MM3 Monocytes # (Auto) 0.2 TH/MM3 0.0 TH/MM3 Eosinophils # (Auto) 0.1 TH/MM3 0.0 TH/MM3 Basophils # (Auto) 0.0 TH/MM3 0.0 TH/MM3 CBC Comment DIFF FINAL DIFF FINAL Differential Comment Prothrombin Time 10.3 SEC Prothromb Time International Ratio 1.0 RATIO Activated Partial Thromboplast Time 28.9 SEC Blood Urea Nitrogen 11 MG/DL 10 MG/DL Creatinine 0.97 MG/DL 0.86 MG/DL Random Glucose 136 MG/DL 169 MG/DL Total Protein 7.1 GM/DL 6.8 GM/DL Albumin 3.6 GM/DL 3.3 GM/DL Calcium Level 8.9 MG/DL 8.7 MG/DL Alkaline Phosphatase 44 U/L 45 U/L Aspartate Amino Transf (AST/SGOT) 21 U/L 19 U/L Alanine Aminotransferase (ALT/SGPT) 37 U/L 34 U/L Total Bilirubin 0.4 MG/DL 0.3 MG/DL Sodium Level 142 MEQ/L 142 MEQ/L Potassium Level 3.4 MEQ/L 4.2 MEQ/L Chloride Level 106 MEQ/L 111 MEQ/L Carbon Dioxide Level 24.7 MEQ/L 22.1 MEQ/L Anion Gap 11 MEQ/L 9 MEQ/L Estimat Glomerular Filtration Rate 58 ML/MIN 66 ML/MIN Troponin I LESS THAN 0.02 NG/ML Urine Color YELLOW Urine Turbidity HAZY Urine pH 5.0 Urine Specific [place] 1.014 Urine Protein NEG mg/dL Urine Glucose (UA) NEG mg/dL Urine Ketones NEG mg/dL Urine Occult Blood NEG Urine Nitrite NEG Urine Bilirubin NEG Urine Urobilinogen LESS THAN 2 mg/dL Urine Leukocyte Esterase NEG Urine WBC LESS THAN 1 /hpf Urine Squamous Epithelial Cells <1 /hpf Urine Mucus FEW /lpf Microscopic Urinalysis Comment CATH-CULT NOT IND Thyroid Stimulating Hormone 3rd Gen 0.025 uIU/ML Imaging Studies Last 24 hours Impressions Brain MRI 09/04/17 6713 Signed Impressions: CONCLUSION: 1. Thick-walled rim-enhancing lesion in the left frontoparietal region measuri ng up to 2.9 x 2.2 cm with surrounding edema and localized mass effect. Primary differential diagnosis is recurrent or residual glioblastoma. I do not have th e benefit of prior MRI. Head CT 09/04/171614 Signed Impressions: CONCLUSION: 1. Increasing edema in the left sylvian region in this patient with a history of glioblastoma. Recurrent tumor is suspected. MRI would be of benefit. Chest X-Ray 09/04/171614 Signed Impressions: CONCLUSION: Minimal bibasilar parenchymal changes, no failure Administered Medications Medications (Trade) Dose Ordered Sig/Wilson Route PRN Reason Start Time Stop Time Status Last Admin Dose Admin Sodium Chloride 1,000 ml @ 70 mls/hr [id number] IV 09/04/17 18:40 09/04/17 20:21 Sodium Chloride (NS Flush) 2 ml BID IV FLUSH 09/04/17 21:00 09/04/17 20:21 Dexamethasone (Decadron) 4 mg Q6HR PO 09/04/17 00:00 09/05/17 06:46 Objective Remarks GENERAL: Older female resting in bed in no obvious distress SKIN: Warm and dry. HEAD: Normocephalic. EYES: No scleral icterus. No injection or drainage. NECK: Supple, trachea midline. No JVD or lymphadenopathy. CARDIOVASCULAR: Regular rate and rhythm without murmurs. RESPIRATORY: Breath sounds equal bilaterally. No accessory muscle use. GASTROINTESTINAL: Abdomen soft, non-tender, nondistended. EXTREMITIES: No cyanosis, or edema. MUSCULOSKELETAL: Adequate muscle tone. NEUROLOGICAL: Right-sided facial droop. Remains with dysarthria however this is much improved than seen yesterday in clinic. Moving all extremities. Assessment/Plan Assessment 67-year-old female with history of glioblastoma with questionable progression Plan The patient is overall much improved since beginning Decadron and increasing Keppra yesterday. She will need to follow-up with [facility] once discharged as they are managing the majority of her care. Continue Decadron as this is decreasing the edema. Supportive care Attending Statement The exam, history, and the medical decision-making described in the above note were completed with the assistance of the mid-level provider. I reviewed and agree with the findings presented. I attest that I had a [id number] encounter with the patient on the same day, and personally performed and documented my assessment and findings in the medical record. Since receiving Decadron she is doing better. The right facial droop is almost gone. Her expressive aphasia is improved. I spoke to the patient and about tapering the Decadron. She will begin with Decadron 4 mg 4 times a day for 3 days and then taper the Decadron to 4 mg , 3 times daily for 3 days then 4 mg p.o. twice daily for 3 days then 4 mg once a day. I have asked her to see Dr. Sweet within the next 7-10 days. She was instructed to take either Protonix or similar drug to protect her stomach while she is on the Decadron. Celestina Handy Sep 05, 2017 10:54 Bunny Maldonado MD Sep 05, 2017 13:03
--- NOTE | 2017-09-05 11:23 | HHI.HP ---
[facility] Service Family Medicine Primary Care Physician [facility] Gita Azul MD Admission Diagnosis brain cancer with neuro symptoms/seizure Diagnoses: (1) Seizure Diagnosis: Secondary (2) Glioblastoma multiforme Diagnosis: Principal (3) Hypothyroidism Diagnosis: Principal (4) HLD (hyperlipidemia) Diagnosis: Principal (5) Hypokalemia Diagnosis: Principal (6) FEN Diagnosis: Principal International Travel<30 Days: No Contact w/Intl Traveler<30days: No Known Affected Area: No History of Present Illness Ms Seymour is a 67-year-old female with a past medical history of primary glioblastoma multiforme, hypothyroidism, and hyperlipidemia who presented to the [facility] ED with her spouse after experiencing seizure-like activity. Patient states that around 10 AM the morning of admission, she felt a "twinge in her right upper cheek" and then lost feeling in that area. She noticed that her speech was much more slurry and she lost spine motor dexterity such that she could not grab a piece of paper or a doorknob. She went to her oncologist' s office where she met a nurse practitioner that asked her to report to the ED. Her symptoms have improved but she still feels numb in her right upper cheek. She had this symptoms before she had seizures which led to her being diagnosed with a brain tumor while she was in [place]. Before today, patient states that she has been doing very well. In the last few months she actually went to [place] and traveled around the country to visit her grandchildren. She is currently on day 4 of 5 of oral chemotherapy. She is taking temozolomide 300 mg p.o. 5 days and then she is off for 23 days. This is her third cycle of 6, but [facility] where she is followed for her brain tumor and where she had her initial resection surgery is pushing for her to undergo 12 cycles of oral chemotherapy. She was last seen at [place] on August 25 where she had an MRI and consulted with medical oncology on August 26. The MRI readings were determined to show a false progression of her tumor. She did not have any clinical symptoms. On review of systems, she reports feeling very fatigued but denies fever, chills , nausea, vomiting, chest pain, shortness of breath, vision problems, dysuria, neck or back pain. She did have violent episodes of nausea and vomiting on the first day of this third round of chemo but it resolved. She takes Zofran at home for nausea. Notably, patient was initially on Keppra 1000 mg twice daily and then was tapered down to 500 mg p.o. twice daily. The [employer] PILOT/NAVIGATOR/DDS OPERATOR that she met today asked her to take an extra 500 mg dose today. She was last hospitalized at [facility] for pulmonary embolism on May 01, 2017. She was seen by Oncology and Neurology who both agreed she could follow up as an outpt. She has been placed on decadron 4 mg QID by Oncology and her Keppra has been increased to former levels. She very much wishes to go home today as she feels back to baseline. Review of Systems Other Constitutional: COMPLAINS OF: Fatigue, DENIES: Fever, Chills, Dizziness, Change in appetite, Night Sweats Eyes: DENIES: Blurred vision, Eye pain, Vision loss Ears, nose, mouth, throat: DENIES: Hearing loss, Running Nose, Sinus Pain Respiratory: DENIES: Cough, Shortness of breath Cardiovascular: DENIES: Chest pain Gastrointestinal: DENIES: Abdominal pain, Diarrhea, Nausea, Vomiting Genitourinary: DENIES: Abnormal vaginal bleeding, Dysuria, Vaginal discharge Musculoskeletal: DENIES: Joint pain, Back pain, Neck pain Integumentary: DENIES: Pruritus, Rash Neurologic: COMPLAINS OF: Paresthesias, Seizures, DENIES: Headache, Tremor Past Family Social History Past Medical History Glioblastoma multiforme * Craniotomy and resection of in 03/2017. She received concomitant Temodar and radiation treatment. She completed her radiation treatments on 06/16/2017. She is now on maintenance phase of Temodar and is taking Temodar 300 mg from day 1-5 of a 28-day cycle. Hypothyroidism Hyperlipidemia Past Surgical History Brain surgery - 04/10/17 Tonsillectomy in 1959 Appendectomy in 1990 (retrocecal) Basal cell carcinoma lesion (adan) in 2011 Allergies: Coded Allergies: Penicillins (Verified Allergy, Severe, hives, 09/04/17) amoxicillin (Verified Allergy, Intermediate, hives, 09/04/17) Family History Father: , stroke/heart attack/dementia Mother: , COPD, breast cancer Sibling(s): 2 sisters, both alive, both have hypothyroidism, one has a faulty heart valve Social History Marital status: Occupation: Teacher - retired in 2017 Smoking: Denies Alcohol: Occasional glass of wine Illicit or illegal prescription medication use: Denies Physical Exam Vital Signs Vital Signs Date Time Temp Pulse Resp B/P (MAP) Pulse Ox O2 Delivery O2 Flow Rate FiO2 09/05/17 08:00 97.3 70 18 155/72 (99) 94 09/05/17 03:55 98.5 89 18 101/59 (73) 94 09/04/17 23:45 99.0 85 18 112/65 (81) 94 09/04/17 21:00 98.2 73 18 155/67 (96) 97 09/04/17 20:13 71 20 160/77 (104) 99 Room Air 09/04/17 20:13 09/04/17 16:31 16 98 Room Air 09/04/17 16:23 81 16 98 Room Air 09/04/17 15:53 98.5 81 18 117/56 (76) 95 Physical Exam GENERAL: This is a well-nourished, well-developed patient, in no apparent distress. SKIN: No rashes, ecchymoses or lesions. Cool and dry. HEAD: Atraumatic. Normocephalic. No temporal or scalp tenderness. EYES: Pupils equal round and reactive. Extraocular motions intact. No scleral icterus but eyes are mildly erythremic. No injection or drainage. ENT: Nose without bleeding, purulent drainage or septal hematoma. Throat without erythema, tonsillar hypertrophy or exudate. Uvula midline. Airway patent. Noticeable NECK: Trachea midline. No JVD or lymphadenopathy. Supple, nontender, no meningeal signs. CARDIOVASCULAR: Regular rate and rhythm without murmurs, gallops, or rubs. RESPIRATORY: Clear to auscultation. Breath sounds equal bilaterally. No wheezes , rales, or rhonchi. GASTROINTESTINAL: Abdomen soft, non-tender, nondistended. No hepato-splenomegaly , or palpable masses. No guarding. MUSCULOSKELETAL: Extremities without clubbing, cyanosis, or edema. No joint tenderness, effusion, or edema noted. No calf tenderness. NEUROLOGICAL: Awake and alert. Right facial nerve palsy due to skin numbness infra orbital on the right and right lip droop. Sensation reduced on the right side of her face compared to the left. Other cranial nerves intact. Five out of 5 muscle strength in all muscle groups. Cerebellar testing intact with normal finger to nose and heel-adan test. Slurred speech. Laboratory Laboratory Tests Test 09/04/17 16:30 09/04/17 17:33 09/04/17 20:15 09/05/17 05:56 White Blood Count 2.8 2.4 Red Blood Count 3.99 4.01 Hemoglobin 12.6 12.6 Hematocrit 36.7 36.4 Mean Corpuscular Volume 91.9 90.9 Mean Corpuscular Hemoglobin 31.7 31.5 Mean Corpuscular Hemoglobin Concent 34.4 34.6 Red Cell Distribution Width 14.1 13.6 Platelet Count 137 143 Mean Platelet Volume 7.1 6.9 Neutrophils (%) (Auto) 78.1 90.3 Lymphocytes (%) (Auto) 8.4 7.8 Monocytes (%) (Auto) 9.0 1.7 Eosinophils (%) (Auto) 4.0 0.1 Basophils (%) (Auto) 0.5 0.1 Neutrophils # (Auto) 2.2 2.1 Lymphocytes # (Auto) 0.2 0.2 Monocytes # (Auto) 0.2 0.0 Eosinophils # (Auto) 0.1 0.0 Basophils # (Auto) 0.0 0.0 CBC Comment DIFF FINAL DIFF FINAL Differential Comment Prothrombin Time 10.3 Prothromb Time International Ratio 1.0 Activated Partial Thromboplast Time 28.9 Blood Urea Nitrogen 11 10 Creatinine 0.97 0.86 Random Glucose 136 169 Total Protein 7.1 6.8 Albumin 3.6 3.3 Calcium Level 8.9 8.7 Alkaline Phosphatase 44 45 Aspartate Amino Transf (AST/SGOT) 21 19 Alanine Aminotransferase (ALT/SGPT) 37 34 Total Bilirubin 0.4 0.3 Sodium Level 142 142 Potassium Level 3.4 4.2 Chloride Level 106 111 Carbon Dioxide Level 24.7 22.1 Anion Gap 11 9 Estimat Glomerular Filtration Rate 58 66 Troponin I LESS THAN 0.02 Urine Color YELLOW Urine Turbidity HAZY Urine pH 5.0 Urine Specific Mckean 1.014 Urine Protein NEG Urine Glucose (UA) NEG Urine Ketones NEG Urine Occult Blood NEG Urine Nitrite NEG Urine Bilirubin NEG Urine Urobilinogen LESS THAN 2 Urine Leukocyte Esterase NEG Urine WBC LESS THAN 1 Urine Squamous Epithelial Cells <1 Urine Mucus FEW Microscopic Urinalysis Comment CATH-CULT NOT IND Thyroid Stimulating Hormone 3rd Gen 0.025 Result Diagram: 09/05/17 0556 09/05/17 0556 Imaging Last Impressions Brain MRI 09/04/17 5734 Signed Impressions: CONCLUSION: 1. Thick-walled rim-enhancing lesion in the left frontoparietal region measuri ng up to 2.9 x 2.2 cm with surrounding edema and localized mass effect. Primary differential diagnosis is recurrent or residual glioblastoma. I do not have th e benefit of prior MRI. Head CT 09/04/17 1615 Signed Impressions: CONCLUSION: 1. Increasing edema in the left sylvian region in this patient with a history of glioblastoma. Recurrent tumor is suspected. MRI would be of benefit. Chest X-Ray 09/04/171614 Signed Impressions: CONCLUSION: Minimal bibasilar parenchymal changes, no failure Caprini VTE Risk Assessment Caprini VTE Risk Assessment: Mod/High Risk (score >= 2) Caprini Risk Assessment Model Point Value = 1 Point Value = 2 Point Value = 3 Point Value = 5 Age 41-60 Minor surgery BMI > 25 kg/m2 Swollen legs Varicose veins or History of unexplained or recurrent spontaneous Oral contraceptives or hormone replacement Sepsis (< 1 month) Serious lung disease, including pneumonia (< 1 month) Abnormal pulmonary function Acute myocardial infarction Congestive heart failure (< 1 month) History of inflammatory bowel disease Medical patient at bed rest Age 61-74 Arthroscopic surgery Major open surgery (> 45 min) Laparoscopic surgery (> 45 min) Malignancy Confined to bed (> 72 hours) Immobilizing plaster cast Central venous access Age >= 75 History of VTE Family history of VTE Factor V Leiden Prothrombin [id number] Lupus anticoagulant Anticardiolipin antibodies Elevated serum homocysteine Heparin-induced thrombocytopenia Other congenital or acquired thrombophilia Stroke (< 1 month) Elective arthroplasty Hip, pelvis, or leg fracture Acute spinal cord injury (< 1 month) Prophylaxis Regimen Total Risk Factor Score Risk Level Prophylaxis Regimen 0-1 Low Early ambulation 2 Moderate Order ONE of the following: *Sequential Compression Device (SCD) *Heparin 5000 units SQ BID 3-4 Higher Order ONE of the following medications: *Heparin 5000 units SQ TID *Enoxaparin/Lovenox 40 mg SQ daily (WT < 150 kg, CrCl > 30 mL/min) *Enoxaparin/Lovenox 30 mg SQ daily (WT < 150 kg, CrCl > 10-29 mL/min) *Enoxaparin/Lovenox 30 mg SQ BID (WT < 150 kg, CrCl > 30 mL/min) AND/OR *Sequential Compression Device (SCD) 5 or more Highest Order ONE of the following medications: *Heparin 5000 units SQ TID (Preferred with Epidurals) *Enoxaparin/Lovenox 40 mg SQ daily (WT < 150 kg, CrCl > 30 mL/min) *Enoxaparin/Lovenox 30 mg SQ daily (WT < 150 kg, CrCl > 10-29 mL/min) *Enoxaparin/Lovenox 30 mg SQ BID (WT < 150 kg, CrCl > 30 mL/min) AND *Sequential Compression Device (SCD) Assessment and Plan Assessment and Plan 67 year old female with past medical history of glioblastoma presents with neurological symptoms that are concerning for a seizure related to her brain tumor. She is feeling back to normal and wishes to go home today. Oncology and Neurology can follow as outpt and she is well looked after by her and friends and will return if there are any new or worsening problems Problem List: (1) Seizure ICD Codes: R56.9 - Unspecified convulsions Plan: -Admit to inpatient -Continue Keppra at increased dose of 1000 mg p.o. twice daily -Keppra level pending -Neurology consult done -Bedside swallow test done -Seizure precautions (2) Glioblastoma multiforme ICD Codes: C71.9 - Malignant neoplasm of brain, unspecified Status: Chronic Plan: -Concern for recurrent disease versus pseudo-progression -Oncology on board * Spoke with Dr. Maldonado who is leaning more towards recurrent disease * Recommends that patient return to [facility] for evaluation * Start Decadron 4 mg p.o. every 6 hours -Speech therapy consult in the morning - pt has not been on any dietary restrictions and does not have any issues with swallowing -Neurochecks every 4 hours (3) Hypothyroidism ICD Codes: E03.9 - Hypothyroidism, unspecified Status: Chronic Plan: -Continue levothyroxine at 137 mcg p.o. daily (4) HLD (hyperlipidemia) ICD Codes: E78.5 - Hyperlipidemia, unspecified Status: Chronic Plan: -Continue simvastatin at 40 mg p.o. daily (5) Hypokalemia ICD Codes: E87.6 - Hypokalemia Status: Acute Plan: -Received 20 Meq. potassium in the ED -Will monitor and replace as needed (6) FEN Status: Acute Plan: Fluids: NS @ 70 mls/hr IV Electrolytes: Will monitor and replace as needed Nutrition: Heart healthy diet after she passed bedside swallow test DVT Prophylaxis: Lovenox 80 mg subcu twice daily GI Prophylaxis: Famotidine 20 mg p.o. twice daily Constipation prophylaxis: Pericolace 1 tab PO BID PRN Medications Tylenol 650 mg by mouth every 4 hours when necessary pain 1-10 or temperature greater than 100.4F Zofran 8 mg PO every 6 hours when necessary nausea vomiting Vasotec 1.25 mg IV PRN SBP greater than 170 or DBP greater than 100 Ambien 5mg PO HS or Vistaril 50mg PO HS -Vitals Q4h -Monitor I's and O's -Fall precautions -Neurochecks -Seizure precautions -Activity OOB with assistance -PT to assist with ambulation -Case management consult to assist with discharge disposition Problem Qualifiers (1) Hypothyroidism: Qualified Codes: E03.9 - Hypothyroidism, unspecified (2) HLD (hyperlipidemia): Qualified Codes: E78.5 - Hyperlipidemia, unspecified Hien France MD Sep 05, 2017 11:23
[2017-09-05 12:00] VITALS: BP 151/72; PULSE 78; RESP 17; TEMP 97.8; O2SAT 96
--- NOTE | 2017-09-05 12:57 | EKG ---
Date Performed: 09/04/2017 Time Performed: 16:30:19 PTAGE: 67 years EKG: Sinus rhythm NORMAL ECG PREVIOUS TRACING : 05/01/2017 17.21 Since the previous tracing, no significant change noted DOCTOR: Tye Kulkarni Interpretating Date/Time 09/05/2017 12:53:53
== END 2017-09-05 13:02 | disposition home or self-care (01) | DRG 100 ==
LOC: NEPC 15:43 → NEDA 18:36 → N06A 20:50
PROVIDERS: ADMIT Family Medicine; ATTEND Family Medicine
DX: R56.9 Unspecified convulsions (principal); G93.6 Cerebral edema; C71.9 Malignant neoplasm of brain, unspecified; R20.0 Anesthesia of skin; R47.81 Slurred speech; E87.6 Hypokalemia; E03.9 Hypothyroidism, unspecified; E78.5 Hyperlipidemia, unspecified; Z79.899 Other long term (current) drug therapy; Z86.711 Personal history of pulmonary embolism; Z92.3 Personal history of irradiation; Z85.828 Personal history of other malignant neoplasm of skin
CPT/HCPCS: 70450; 70553; 71045; 80053; 80177; 81001; 84443; 84484; 85025; 85610; 85730; 93005; 96374; A9579; J1100; J7030; J8540